=== PATIENT | female | born 1960 | race Hispanic/Latino ===

== ENCOUNTER 2017-06-03 15:00 | Inpatient (IN) | payer SELFPAY ==
[2017-06-03] MEDS ORDERED: ISOVUE-370 76%-LOCM 1 ML ONE (15:15)
[2017-06-03] MEDS ORDERED: hydrALAZINE 20 MG/ML VIAL ONE (16:04)
--- NOTE | 2017-06-03 16:35 | RAD ---
PORTABLE AP CHEST X-RAY 06/03/17 HISTORY: Shortness of breath and wheezing. COMPARISON: 03/27/13. FINDINGS: There is a moderate sized right pleural effusion and atelectasis. The cardiac silhouette is magnified by projection. Left lung appears clear. No other interval change. IMPRESSION: Moderate sized right pleural effusion and atelectasis. POS: [facility]
[2017-06-03 16:42] LABS: BHCG - Serum Negative (NEGATIVE); Pregs Control Background? CLEAR/WHITE (CLR/WHITE); Pregs Control Bar Appear? YES (CONTROL BAR)
[2017-06-03 16:51] LABS: #Eosinphils 0.1 thou/uL (0.0-0.7); #Lymphocytes 0.6 thou/uL (1.20-3.40); #Monocytes 0.3 thou/uL (0.11-0.59); #Neutrophils 2.1 thou/uL (1.40-6.50); %Basophils 0.4 % (0.0-1.0); %Eosinophils 2.5 % (0.0-10.0); %Lymphocytes 19.9 % (21.0-51.0); %Monocytes 9.3 % (0.0-10.0); %Neutrophils 67.9 % (42.0-75.0); Hemoglobin 9.3 g/dL (12.0-16.0); Hypochromia SLIGHT = 6-15 cells (100X) (0-5/hpf); MDiff Complete? YES; Mean Corpuscular Hemoglobin 27.3 pg (27.0-31.0); Mean Corpuscular Volume 85.4 fl (81.0-99.0); Mean Platelet Volume 8.8 fL (7.4-10.4); PLT Morphology Comment Appears Decreased; Platelet Count 49 thou/uL (130-400); RBC Distribution Width 16.2 % (11.5-14.5); White Blood Cell (WBC) Count 3.1 thou/uL (4.8-10.8)
[2017-06-03 16:52] LABS: ALT (SGPT) 24 U/L (8-55); AST (SGOT) 64 U/L (5-34); Albumin 3.3 g/dL (3.5-5.0); Alkaline Phosphatase 126 U/L (40-150); Anion Gap 8 mmol/L (10-20); BUN (Urea Nitrogen) 6 mg/dL (9.8-20.1); Bilirubin, Total 2.1 mg/dL (0.2-1.2); Calc. Creatinine Clearance 0 mL/min (70-130); Calcium 8.5 mg/dL (7.8-10.44); Carbon Dioxide 28 mmol/L (22-29); Chloride 103 mmol/L (98-107); Estimated GFR-MDRD 86; Globulin 3.9 g/dL (2.4-3.5); Glucose 132 mg/dL (70-105); Protein, Total 7.2 g/dL (6.0-8.3); Sodium 136 mmol/L (136-145)
[2017-06-03 16:56] LABS: Troponin I Less than 0.010 ng/mL (< 0.028)
[2017-06-03 16:58] LABS: CKMB 7.1 ng/mL (0-6.6)
[2017-06-03 16:59] LABS: Potassium 2.7 mmol/L (3.5-5.1)
[2017-06-03] MEDS ORDERED: Potassium Chloride 20 MEQ TAB ONE (17:05)
[2017-06-03] MEDS ORDERED: SODIUM CHLORIDE 0.9% IVPB SCH (17:30)
[2017-06-03] MEDS ORDERED: POTASSIUM CHLORIDE IVPB SCH (17:30)
--- NOTE | 2017-06-03 19:11 | CT ---
CT PULMONARY ANGIOGRAM WITH IV CONTRAST AND 3D POSTPROCESSING 06/03/17 HISTORY: Dyspnea, shortness of breath, chest pain, wheezing. FINDINGS: The peripheral branches of the pulmonary artery vasculature are suboptimally opacified for satisfacto ry evaluation. No filling defects are seen in the central portion of the pulmonary artery vasculature to suggest the presence of pulmonary embolism. The thoracic aorta is well opacified without aneurysm al dissection. There is a moderate sized right pleural effusion with adjacent infiltrate/atelectatic change. No pericardial or left sided pleural effusions seen. Calcified lymph nodes are seen in the me diastinum and hilar regions. This is consistent with old granulomatous disease. There are degenerativ e changes in the spine. Upper abdominal tomograms demonstrate changes of cirrhosis of the liver, ch olecystectomy, and splenomegaly. A small hiatal hernia is present. IMPRESSION: No evidence of central pulmonary embolism. POS: [facility]
[2017-06-03 19:51] LABS: Troponin I Less than 0.010 ng/mL (< 0.028)
[2017-06-03] MEDS ORDERED: Furosemide 20 MG/2 ML VIAL SLOW IVP SCH (20:00)
[2017-06-03] MEDS ORDERED: Potassium Chloride 20 MEQ TAB PO SCH (20:15)
[2017-06-03 20:38] LABS: Anion Gap 11 mmol/L (10-20); BUN (Urea Nitrogen) 5 mg/dL (9.8-20.1); Calc. Creatinine Clearance 0 mL/min (70-130); Calcium 8.5 mg/dL (7.8-10.44); Carbon Dioxide 28 mmol/L (22-29); Chloride 104 mmol/L (98-107); Estimated GFR-MDRD Greater than 90; Glucose 82 mg/dL (70-105); Potassium 3.5 mmol/L (3.5-5.1); Sodium 139 mmol/L (136-145)
--- NOTE | 2017-06-03 21:36 | ULT ---
LIMITED ULTRASOUND ABDOMEN: 06/03/17 HISTORY: Evaluate for ascites. FINDINGS: Sonographic evaluation of the four quadrants of the abdomen and the midline pelvis demonstrates no fr ee fluid to suggest ascites. Incidental note is made of a right sided pleural effusion. IMPRESSION: No evidence of ascites. POS: [facility]
[2017-06-03 22:25] LABS: Bilirubin Negative (Negative); Blood, Urine Negative (Negative); Clarity CLEAR (Clear); Glucose, Urine (Dipstick) Negative (Negative); Leukocyte Negative (Negative); Nitrite Negative (Negative); Protein, Urine (Dipstick) Negative (Neg-Trace); Specific Gravity, Urine 1.021 (1.002-1.036)
[2017-06-03 22:29] LABS: Bacteria/HPF None Seen HPF (None Seen); Hyaline Casts/LPF 0-3 HYALINE CAST LPF (0-3 Hyaline); Pathc Cast-AUWi Flag 0.29 (0-2.49); RBC/HPF None Seen HPF (0-3); Squamous Epithelial 0-3 HPF (0-3); WBC/HPF 0-3 HPF (0-3)
[2017-06-03 23:02] LABS: Troponin I 0.011 ng/mL (< 0.028)
[2017-06-04 01:58] LABS: #Eosinphils 0.1 thou/uL (0.0-0.7); #Lymphocytes 0.4 thou/uL (1.20-3.40); #Monocytes 0.3 thou/uL (0.11-0.59); #Neutrophils 1.6 thou/uL (1.40-6.50); %Basophils 0.2 % (0.0-1.0); %Eosinophils 2.5 % (0.0-10.0); %Lymphocytes 18.5 % (21.0-51.0); %Monocytes 11.9 % (0.0-10.0); Hemoglobin 8.5 g/dL (12.0-16.0); Mean Corpuscular HGB CONC 32.4 g/dL (32.0-36.0); Mean Corpuscular Hemoglobin 27.6 pg (27.0-31.0); Mean Corpuscular Volume 85.2 fl (81.0-99.0); Mean Platelet Volume 10.2 fL (7.4-10.4); Platelet Count 45 thou/uL (130-400); RBC Distribution Width 16.1 % (11.5-14.5); Red Blood Cell (RBC) Count 3.07 mill/uL (4.20-5.40); White Blood Cell (WBC) Count 2.4 thou/uL (4.8-10.8)
[2017-06-04 02:15] LABS: Anion Gap 7 mmol/L (10-20); BUN (Urea Nitrogen) 5 mg/dL (9.8-20.1); Calc. Creatinine Clearance 164 mL/min (70-130); Calcium 8.2 mg/dL (7.8-10.44); Carbon Dioxide 29 mmol/L (22-29); Chloride 106 mmol/L (98-107); Estimated GFR-MDRD Greater than 90; Glucose 88 mg/dL (70-105); Potassium 3.6 mmol/L (3.5-5.1); Sodium 138 mmol/L (136-145)
[2017-06-04] MEDS: Furosemide 20 MG/2 ML VIAL SLOW IVP SCH ×2 (05:37→13:27)
[2017-06-04 08:18] LABS: Anion Gap 12 mmol/L (10-20); BUN (Urea Nitrogen) 5 mg/dL (9.8-20.1); Calc. Creatinine Clearance 162 mL/min (70-130); Calcium 8.5 mg/dL (7.8-10.44); Carbon Dioxide 25 mmol/L (22-29); Chloride 105 mmol/L (98-107); Estimated GFR-MDRD Greater than 90; Glucose 90 mg/dL (70-105); Potassium 3.4 mmol/L (3.5-5.1); Sodium 139 mmol/L (136-145)
[2017-06-04] MEDS ORDERED: Enoxaparin Sodium 30 MG/0.3 ML SYRINGE SC SCH (09:00)
[2017-06-04] MEDS ORDERED: hydrALAZINE 20 MG/ML VIAL SLOW IVP PRN (10:14)
[2017-06-04] MEDS ORDERED: Lisinopril 20 MG TAB PO SCH (10:30)
[2017-06-04] MEDS: Acetaminophen 325 MG TAB PO PRN (10:38)
--- NOTE | 2017-06-04 11:06 | PDOC.PN ---
- Subjective Encounter Start Date: 06/04/17 Encounter Start Time: 11:03 Subjective: nsg notes rev, clint ovn, pt reports her wheezing and breathing is better but -: still has very SOB with walking - Objective Resuscitation Status: Resuscitation Status FULL:Full Resuscitation Vital Signs & Weight: Vital Signs (12 hours) Temp Pulse Pulse Pulse Resp BP BP 06/04/17 10:38 193/102 H 06/04/17 09:50 74 83 153/80 H 06/04/17 08:00 98.2 F 79 16 06/04/17 07:53 98.2 F 79 16 06/04/17 03:29 98.4 F 76 20 06/03/17 23:28 98.2 F 80 16 BP BP Pulse Ox 06/04/17 10:38 06/04/17 09:50 193/102 H 06/04/17 08:00 98 06/04/17 07:53 151/87 H 98 06/04/17 03:29 157/84 H 97 06/03/17 23:28 175/83 H 100 Weight Weight 240 lb 3.2 oz I&O: 06/03/17 06/04/17 06/05/17 06:59 06:59 06:59 Intake Total 2630 240 Output Total 2300 Balance 330 240 Result Diagrams: 06/04/17 01:50 06/04/17 07:46 Phys Exam - Physical Examination Constitutional: NAD seated in hospital chair HEENT: PERRLA, moist MMs, sclera anicteric, oral pharynx no lesions Respiratory: no rales, no rhonchi end expiratory wheezing with deep inspiration Cardiovascular: RRR, no significant murmur, no rub Gastrointestinal: soft, non-tender, positive bowel sounds large Musculoskeletal: pulses present 2+ b/l LE pitting pedal edema Neurological: moves all 4 limbs Psychiatric: A&O x 3 Deviation from normal: baseline affect Dx/Plan - Plan wheezing * symptomatically improved * empiric lasix 20mg IV BID with monitoring I/O, BMP * suspect related to R pleural effusion - unclear etiology R pleural effusion * unclear type * continue with symptomatic diuresis as above * ECHO to eval cardiac fxn * U/S abd neg for obvious hepatic etiology liang cytopenia * unclear etiology * dvt ppx with sq hypertension * continue home HCTZ * t/c adding lisinopril * closely monitor SBP diet: as tolerated activity: as tolerated with PT dvt ppx Review of Systems - Medications/Allergies Allergies/Adverse Reactions: Allergies Allergy/AdvReac Type Severity Reaction Status Date / Time No Known Allergies Allergy Verified 06/03/17 22:47 Medications: Current Medications Acetaminophen (Tylenol) 650 mg PO Q4H PRN PRN Reason: Headache/Fever or Pain Last Admin: 06/04/17 10:38 Dose: 650 mg Enoxaparin Sodium (Lovenox) 30 mg SC 0900 [facility] Last Admin: 06/04/17 08:24 Dose: 30 mg Furosemide (Lasix) 20 mg SLOW IVP 0600,1400 [facility] Last Admin: 06/04/17 05:37 Dose: 20 mg Hydralazine HCl (Apresoline) 10 mg SLOW IVP Q4H PRN PRN Reason: SBP > 180 Hydrochlorothiazide (Hydrochlorothiazide) 25 mg PO DAILY [facility] Lisinopril (Zestril) 20 mg PO DAILY [facility] Lisinopril (Zestril) 20 mg PO 1030 [facility] Stop: 06/04/17 12:30 Last Admin: 06/04/17 10:38 Dose: 20 mg
--- NOTE | 2017-06-04 11:44 | HP ---
CHIEF COMPLAINT: Shortness of breath. HISTORY OF PRESENT ILLNESS: This is a 57-year-old female with a known history of hypertension who presents with acute on chronic worsening of shortness of breath. The most chronic complaint has been progressive over the last month and over the last 2-3 days, she has noticed that shortness of breath has gotten worse, particularly she is unable to complete ADLs without becoming short of breath. The patient also has been noted to have progressive lower extremity swelling and abdominal swelling per her sister who is with her at bedside. The patient denies any prior similar episodes. REVIEW OF SYSTEMS: As per HPI. Constitutional: Denies any recent fevers, chills, or significant weight loss or gain, but the patient has not been weighing herself. HEENT: No new headaches, dizziness, lightheadedness, or vision changes. Cardiovascular: No chest pain, chest pressure, left-sided arm numbness or tingling. Positive for shortness of breath as described above. Respiratory: Shortness of breath as described above. No recent upper respiratory infection. Denies any cough or congestion. Gastrointestinal: Denies any nausea, vomiting, abdominal pain other than the bloating that was noted by her sister. The patient herself does not recall any. Denies any diarrhea or constipation. Describes a preserved appetite. Genitourinary: Denies any recent issues with dysuria. Musculoskeletal: Denies any new myalgias or arthralgias other than bilateral lower extremity swelling. The remainder of the review of systems otherwise negative. PAST MEDICAL HISTORY: Significant for hypertension. PAST SURGICAL HISTORY: The patient denies any surgeries in the past. HOME MEDICATIONS: Please see the EMR for full details. The patient only takes "1 pill" for her blood pressure, but does not recall the name of it off the top of her head. SOCIAL HISTORY: The patient lives alone. Denies any alcohol or illicit drug use, is accompanied here by her sister. She does needs her sister as her medical decision maker if she is unable to make her own medical decisions. PHYSICAL EXAMINATION: GENERAL: The patient is awake, alert, appropriate, oriented x3, conversant. HEENT: Normocephalic, atraumatic. Moist mucous membranes, equal ocular motions are intact. CARDIOVASCULAR: S1, S2. No murmurs, rubs or gallops. Soft heart tones. Pulses 2+ bilateral upper extremities, bilateral 2+ pitting pedal edema. RESPIRATORY: Clear to auscultation, diminished throughout with some crackles of the right lower lobe, some dyspnea with conversation. GASTROINTESTINAL: Positive bowel sounds. Soft, nontender to palpation. Large , obese. No fluid wave appreciated. MUSCULOSKELETAL: Moving all 4 extremities equally. LABORATORY DATA: WBC 3.1, hemoglobin 9.3, hematocrit 29.0, platelets 49. Sodium 136, potassium 2.7, chloride 103, bicarbonate 28, BUN 6, creatinine 0.7, glucose 132, calcium 8.5, total bilirubin 2.1, AST 64, ALT 24, alkaline phosphatase 126, troponin less than 0.01. Brain natriuretic peptide is 73.6, total protein 7.2, albumin 3.3. Serum test is negative. UA is otherwise bland. D-dimer 3.43. X-RAY FINDINGS: On 06/03/2017, chest x-ray demonstrates, impression "moderate right-sided pleural effusion and atelectasis." On 06/03/2017, CT of the chest, thorax, impression "no evidence of central pulmonary embolism." ASSESSMENT AND PLAN: 1. Shortness of breath, right now, possibly attributed to the patient's right- sided pleural effusion. Unclear etiology of the pleural effusion and given the patient's leukopenia and thrombocytopenia, we will go ahead and check abdomen with an ultrasound. Also, concern for maybe an occult cardiac process. We will check an echocardiogram for the patient as well. For symptomatic management, we will diurese carefully with Lasix 20 mg IV b.i.d. and close monitoring of renal electrolyte function. 2. Hypertension. Patient will be resumed on her home regimen with up titration as needed and a p.r.n. dose of hydralazine as needed. Admit the patient to inpatient telemetry. Thank you for asking me to care for the patient. Questions or concerns, please contact me at [facility]. SELWYN
[2017-06-04 14:25] LABS: Anion Gap 10 mmol/L (10-20); BUN (Urea Nitrogen) 6 mg/dL (9.8-20.1); Calc. Creatinine Clearance 159 mL/min (70-130); Calcium 8.3 mg/dL (7.8-10.44); Carbon Dioxide 26 mmol/L (22-29); Chloride 104 mmol/L (98-107); Estimated GFR-MDRD Greater than 90; Glucose 136 mg/dL (70-105); Potassium 3.5 mmol/L (3.5-5.1); Sodium 136 mmol/L (136-145)
[2017-06-04 18:21] LABS: Anisocytosis SLIGHT = 6-15 cells (100X) (0-5/hpf); Band 3 % (5-11); Eosinophils 1 % (0-10); Hemoglobin 9.3 g/dL (12.0-16.0); Hypochromia SLIGHT = 6-15 cells (100X) (0-5/hpf); Lymphocytes 10 % (21-51); MDiff Complete? YES; Mean Corpuscular HGB CONC 31.6 g/dL (32.0-36.0); Mean Corpuscular Hemoglobin 27.3 pg (27.0-31.0); Mean Corpuscular Volume 86.3 fl (81.0-99.0); Mean Platelet Volume 10.2 fL (7.4-10.4); Monocytes 3 % (0-10); Neutrophil 83 % (42-75); PLT Morphology Comment Appears Decreased; Platelet Count 52 thou/uL (130-400); RBC Distribution Width 16.4 % (11.5-14.5); White Blood Cell (WBC) Count 2.7 thou/uL (4.8-10.8)
[2017-06-04 21:16] LABS: Anion Gap 8 mmol/L (10-20); BUN (Urea Nitrogen) 7 mg/dL (9.8-20.1); Calc. Creatinine Clearance 146 mL/min (70-130); Calcium 8.2 mg/dL (7.8-10.44); Carbon Dioxide 27 mmol/L (22-29); Chloride 105 mmol/L (98-107); Estimated GFR-MDRD 82; Glucose 107 mg/dL (70-105); Potassium 3.4 mmol/L (3.5-5.1); Sodium 137 mmol/L (136-145)
--- NOTE | 2017-06-04 22:00 | CON ---
DATE OF CONSULTATION: 06/04/2017 SERVICE: Pulmonary Medicine. REASON FOR CONSULTATION: Pleural effusion. HISTORY OF PRESENT ILLNESS: The patient is a 57-year-old female with past medical history significant for essentially nothing. She was in her usual state of health until 3 weeks ago when she had increasing dyspnea on exertion. For the last week, she has been waking up in the middle of the night choking and gasping. She sat on the side of the bed for 15-20 minutes before she catch her breath. She lie back down, but feel short of breath almost immediately. She has been sleeping more upright. She denies any current fevers or chills. She had not been coughing up any significant sputum with color. She is having increasing lower extremity swelling as well as weight gain. She presented to the Emergency Department and was discovered to be floridly overloaded. She ended up getting several doses of Lasix. She feels dramatically improved as far as her breathing goes. When she was in the Emergency Department, she had a CT of the chest demonstrating pleural effusion. PAST MEDICAL HISTORY: 1. Hypertension. 2. History of pituitary tumor, status post excision. PAST SURGICAL HISTORY: Pituitary tumor excision. ALLERGIES: No known drug allergies. MEDICATIONS: Inpatient medications were reviewed. No updates were made. SOCIAL HISTORY: Negative for alcohol, tobacco or illicit drug use. She has no exposure to chemicals, dust, asbestos or tuberculosis. FAMILY HISTORY: Noncontributory. REVIEW OF SYSTEMS: General, head, ears, eyes, nose, throat, cardiovascular, respiratory, GI, , musculoskeletal, neurologic and skin is negative except as mentioned in the HPI. PHYSICAL EXAMINATION: VITAL SIGNS: Afebrile, pulse 72, blood pressure 167/82, respirations 16, saturation 99% on room air. GENERAL: The patient is awake, alert, no apparent distress. LUNGS: Reduced air entry in the right. There is a little dullness to percussion there. That being said, I have to say the effusion is likely getting smaller. There are crackles present bilaterally. HEART: Normal rate, regular. ABDOMEN: Soft, nontender, nondistended. Bowel sounds are positive. MUSCULOSKELETAL: No cyanosis or clubbing. There is no pitting in the bilateral lower extremities. NEUROLOGIC: Grossly nonfocal. LABORATORY DATA: WBC 2.4, hemoglobin 8.5, platelets 45,000. D-dimer 3.43. Basic metabolic profile is essentially unremarkable. Urinalysis is negative. IMAGIN. Echocardiogram demonstrates an ejection fraction of 50%-55%. There is diastolic dysfunction and an enlarged left atrium. Mild mitral regurgitation is also present. 2. CT of the chest demonstrates moderate pleural effusion on the right. There is a little bit of compressive atelectasis there. This appears to be a benign fluid and is freely layering. No pulmonary embolism is identified. There is no infiltrate. ASSESSMENT: 1. Acute hypoxic respiratory failure, resolved. 2. Anasarca with pleural effusion. 3. Acute on chronic diastolic heart failure. 4. Obstructive sleep apnea, suspected. 5. History of pituitary excision. 6. Pancytopenia. PLAN: We will get a peripheral smear in the morning as well as a folate and B12 level. I will add a magnesium and phosphorus because of her recent diuretics. Agree with repeat laboratories in the morning. I will get an INR to make certain the synthetic function of her liver is fine. I will check a TSH because of the history of pituitary excision. At this point, the patient has had dramatic improvement in her symptoms with aggressive diuretics. As such , we will simply repeat chest x-ray in the morning. If the effusion is getting better, we can repeat another x-ray in the outpatient setting in 4-6 weeks. At that time come, we can look into whether or not sleep apnea exist. If it does, we will get her started on therapy in the outpatient setting. If on the other hand, the pleural effusion is still there, we will perform a thoracentesis while she is in the hospital. 70 minutes have been devoted to this patient in various activities. I personally reviewed all imaging studies and laboratory data noted within this document. For fifty percent of this time, I was interacting with the patient at the bedside or coordinating care with the care team. For the remainder of the time I was immediately available to the patient in the hospital unit. SELWYN
[2017-06-04] MEDS ORDERED: Ondansetron ODT 4 MG TAB PO PRN (23:07)
[2017-06-05 02:29] LABS: #Eosinphils 0.1 thou/uL (0.0-0.7); #Lymphocytes 0.4 thou/uL (1.20-3.40); #Monocytes 0.2 thou/uL (0.11-0.59); #Neutrophils 1.5 thou/uL (1.40-6.50); %Basophils 0.2 % (0.0-1.0); %Eosinophils 3.4 % (0.0-10.0); %Lymphocytes 19.6 % (21.0-51.0); %Monocytes 8.7 % (0.0-10.0); %Neutrophils 68.1 % (42.0-75.0); Hemoglobin 8.1 g/dL (12.0-16.0); Mean Corpuscular HGB CONC 32.5 g/dL (32.0-36.0); Mean Corpuscular Hemoglobin 27.8 pg (27.0-31.0); Mean Corpuscular Volume 85.4 fl (81.0-99.0); Mean Platelet Volume 9.4 fL (7.4-10.4); Platelet Count 45 thou/uL (130-400); RBC Distribution Width 16.3 % (11.5-14.5); Red Blood Cell (RBC) Count 2.92 mill/uL (4.20-5.40); White Blood Cell (WBC) Count 2.2 thou/uL (4.8-10.8)
[2017-06-05 02:43] LABS: INR-International Normal Ratio 1.7; Prothrombin Time 20.8 SEC (12.0-14.7)
[2017-06-05 02:48] LABS: Anion Gap 8 mmol/L (10-20); BUN (Urea Nitrogen) 7 mg/dL (9.8-20.1); Calc. Creatinine Clearance 162 mL/min (70-130); Calcium 7.9 mg/dL (7.8-10.44); Carbon Dioxide 27 mmol/L (22-29); Chloride 106 mmol/L (98-107); Estimated GFR-MDRD Greater than 90; Glucose 86 mg/dL (70-105); Potassium 3.5 mmol/L (3.5-5.1); Sodium 137 mmol/L (136-145)
[2017-06-05 03:01] LABS: Magnesium 1.8 mg/dL (1.6-2.6); Phosphorus 2.6 mg/dL (2.3-4.7)
[2017-06-05 05:45] LABS: Folate (Folic Acid) 10.9 ng/mL (7.0-31.4)
[2017-06-05] MEDS: Furosemide 20 MG/2 ML VIAL SLOW IVP SCH ×3 (05:50→21:54)
[2017-06-05 08:13] LABS: Anion Gap 10 mmol/L (10-20); BUN (Urea Nitrogen) 7 mg/dL (9.8-20.1); Calc. Creatinine Clearance 153 mL/min (70-130); Calcium 8.2 mg/dL (7.8-10.44); Carbon Dioxide 24 mmol/L (22-29); Chloride 108 mmol/L (98-107); Estimated GFR-MDRD 86; Glucose 87 mg/dL (70-105); Potassium 3.6 mmol/L (3.5-5.1); Sodium 138 mmol/L (136-145)
[2017-06-05] MEDS: Hydrochlorothiazide 25 MG TAB PO SCH (10:04)
[2017-06-05] MEDS: Lisinopril 20 MG TAB PO SCH (10:04)
--- NOTE | 2017-06-05 10:30 | RAD ---
TWO VIEWS CHEST: DATE: 06/05/17. PROVIDED CLINICAL HISTORY: Followup effusion. FINDINGS: Cardiac silhouette remains enlarged. Prominence of the pulmonary vasculature and pulmonary interstit ium are redemonstrated. Interval decrease in right pleural density. No evidence for pneumothorax. IMPRESSION: Cardiomegaly and pulmonary vascular congestion compatible with congestive failure. Interval decrease in right pleural density. POS: [facility]
--- NOTE | 2017-06-05 10:30 | PDOC.PN ---
- Subjective Encounter Start Date: 06/05/17 Encounter Start Time: 10:30 CC: [id number] Sub: Pt says she feels better, denies dyspnea - Objective Resuscitation Status: Resuscitation Status FULL:Full Resuscitation Vital Signs & Weight: Vital Signs (12 hours) Temp Pulse Resp BP BP Pulse Ox 06/05/17 10:04 119/73 06/05/17 08:00 98.5 F 72 16 119/73 97 06/05/17 04:00 98.6 F 76 16 135/68 95 06/04/17 23:07 98.4 F 69 20 134/76 99 Weight Weight 240 lb 3.2 oz I&O: 06/04/17 06/05/17 06/06/17 06:59 06:59 06:59 Intake Total 2630 1215 420 Output Total 2300 Balance 330 1215 420 Result Diagrams: 06/05/17 02:12 06/05/17 07:39 Dx/Plan - Plan Constitutional: NAD, sitting in chair seated in hospital chair HEENT: PERRLA, moist MMs, sclera anicteric, oral pharynx no lesions Respiratory: no rales, no rhonchi end expiratory wheezing with deep inspiration Cardiovascular: RRR, no significant murmur, no rub Gastrointestinal: soft, non-tender, positive bowel sounds large Musculoskeletal: pulses present 2+ b/l LE pitting pedal edema Neurological: moves all 4 limbs Psychiatric: A&O x 3 Deviation from normal: baseline affect Dx/Plan - Plan wheezing * symptomatically improved * will increase lasix to 20mg IV q8h with monitoring I/O, BMP * suspect related to R pleural effusion - unclear etiology R pleural effusion * unclear type * continue with symptomatic diuresis as above * ECHO to eval cardiac fxn * U/S abd neg for obvious hepatic etiology liang cytopenia * unclear etiology, will check hepatitis and HIV panel * dvt ppx with sq hypertension * continue home HCTZ * closely monitor SBP diet: as tolerated activity: as tolerated with PT dvt ppx d/w pt & RN
[2017-06-05 11:50] LABS: HBCM Index 0.06 S/CO (0-0.79); HBSAg Index 0.24 S/CO (0-0.99); HIV (1/2) Antibody/Antigen Non-Reactive (NonReactive); HIV 1/2 INDEX 0.14 S/CO (<1.00); Hep A IgM AB Non-Reactive (NonReactive); Hep A IgM S/CO 0.09 S/CO (0-0.79); Hep B Surf Ag Non-Reactive S/CO (NonReactive); Hep C IgG Ab Non-Reactive (NonReactive); Hep C Index 0.17 S/CO (0-0.79); Hepatitis B Core IGM Abs Non-Reactive (NonReactive)
[2017-06-05 15:06] LABS: Anion Gap 11 mmol/L (10-20); BUN (Urea Nitrogen) 8 mg/dL (9.8-20.1); Calc. Creatinine Clearance 140 mL/min (70-130); Calcium 7.9 mg/dL (7.8-10.44); Carbon Dioxide 22 mmol/L (22-29); Chloride 107 mmol/L (98-107); Estimated GFR-MDRD 78; Glucose 133 mg/dL (70-105); Potassium 3.9 mmol/L (3.5-5.1); Sodium 136 mmol/L (136-145)
[2017-06-06] MEDS: Acetaminophen 325 MG TAB PO PRN ×2 (00:08→22:15)
[2017-06-06 05:13] LABS: #Eosinphils 0.1 thou/uL (0.0-0.7); #Lymphocytes 0.7 thou/uL (1.20-3.40); #Monocytes 0.3 thou/uL (0.11-0.59); #Neutrophils 1.5 thou/uL (1.40-6.50); %Basophils 0.8 % (0.0-1.0); %Eosinophils 3.4 % (0.0-10.0); %Lymphocytes 27.1 % (21.0-51.0); %Monocytes 10.7 % (0.0-10.0); Hemoglobin 8.6 g/dL (12.0-16.0); Mean Corpuscular HGB CONC 32.6 g/dL (32.0-36.0); Mean Corpuscular Hemoglobin 28.2 pg (27.0-31.0); Mean Corpuscular Volume 86.5 fl (81.0-99.0); Mean Platelet Volume 9.7 fL (7.4-10.4); Platelet Count 55 thou/uL (130-400); RBC Distribution Width 16.6 % (11.5-14.5); Red Blood Cell (RBC) Count 3.04 mill/uL (4.20-5.40); White Blood Cell (WBC) Count 2.5 thou/uL (4.8-10.8)
[2017-06-06 05:42] LABS: Anion Gap 10 mmol/L (10-20); BUN (Urea Nitrogen) 9 mg/dL (9.8-20.1); Calc. Creatinine Clearance 142 mL/min (70-130); Calcium 8.1 mg/dL (7.8-10.44); Carbon Dioxide 26 mmol/L (22-29); Chloride 105 mmol/L (98-107); Estimated GFR-MDRD 85; Glucose 82 mg/dL (70-105); Potassium 3.5 mmol/L (3.5-5.1); Sodium 137 mmol/L (136-145)
[2017-06-06] MEDS: Furosemide 20 MG/2 ML VIAL SLOW IVP SCH ×3 (06:47→22:20)
--- NOTE | 2017-06-06 07:44 | ULT ---
RIGHT UPPER QUADRANT ULTRASOUND: HISTORY: A 57-year-old female with a history of followup right pleural effusion. Followup chest pain, shortne ss of breath, and wheezing. FINDINGS: Abnormal liver echotexture with capsular nodularity and overall appearance certainly raises concern f or cirrhosis. Common bile duct 0.6 cm. Status post gallbladder removal. Poorly evaluated pancreas. No right renal hydronephrosis. IMPRESSION: Nodular coarse liver echogenicity with some contour nodularity, evidence for cirrhosis. No ductal di latation. No evidence for ascites I the right upper quadrant. POS: [facility]
[2017-06-06] MEDS: Hydrochlorothiazide 25 MG TAB PO SCH (08:08)
[2017-06-06] MEDS: Lisinopril 20 MG TAB PO SCH (08:08)
[2017-06-06] MEDS ORDERED: Spironolactone 25 MG TAB PO SCH (10:30)
--- NOTE | 2017-06-06 11:56 | CON ---
DATE OF CONSULTATION: 06/06/2017. REASON FOR CONSULTATION: Shortness of breath, possible diastolic congestive heart failure. HISTORY OF PRESENT ILLNESS: Ms. Patti Palma is a 57-year-old woman. She was admitted to the [facility] on 06/03/2017 with difficulty breathing. She was found to be volume overloaded. She also has pleural effusion. She has received diuretic therapy and has improved, but was found to have what jamie ears to be a very significant liver disease. The patient does not have chest pain. She was very short of breath and had edema, but that is all im proved. PAST MEDICAL HISTORY: 1. Hypertension. 2. No previous cardiac history. 3. History of pituitary tumor with previous excision. SURGICAL HISTORY: Pituitary tumor excision. ALLERGIES: None known. MEDICATIONS: Inpatient medicines reviewed, please see below. SOCIAL HISTORY: She says she drinks alcohol perhaps once a month. No tobacco, no drugs. FAMILY HISTORY: Noncontributory. REVIEW OF SYSTEMS: Constitutional: Positive for shortness of breath, no weight gain or loss. Visio n: No changes. Hearing: No changes. Pulmonary: No cough or wheezing. Gastrointestinal: No nausea, vomiting, diarrhea. Skin: No rashes. Neurologic: No unilateral weak ness or numbness. Psychiatric: No unusual depression or anxiety. Hematologic: No unusual bruising . Genitourinary: No burning with urination. Musculoskeletal: No unusual joint pains. PHYSICAL EXAMINATION: VITAL SIGNS: The blood pressure is 137/87, pulse 60. HEENT: Eyes, sclerae nonicteric. Mouth mucous membranes moist. NECK: Supple, no lymphadenopathy. LUNGS: Clear, no wheezing, rales or rhonchi. CARDIAC: Normal S1, normal S2. There is no murmur, rub or gallop. ABDOMEN: Soft, nontender, no hepatosplenomegaly. EXTREMITIES: Warm, dry, no clubbing, no cyanosis or edema. Currently, she has good posterior tibial pulses bilaterally. PERTINENT LABORATORY DATA AND IMAGING: Potassium on arrival was low at 2.7 and now it is up to 3.5, creatinine is 0.7. BNP was normal at 73.6. Troponins were normal. Echocardiogram revealed an eject ion fraction of 55%-60%. The left atrium is mildly dilated. The pulmonary artery pressure appeared normal. The left atrial dimension was measured at 4.6 cm. EKG, normal sinus rhythm, no acute changes. ASSESSMENT: 1. Probable diastolic heart failure based on clinical criteria, although the BNP is normal. 2. The patient has evidence of cirrhosis based on liver imaging and also has INR markedly elevated a t 1.7 usually corresponding with relatively severe liver disease. 3. Pancytopenia. Hemoglobin is 8.6, WBC 2.5, platelet count 55, was as low as 45. I suspect also r elated to liver disease. 4. History of hypertension. 5. Hypokalemia on admission. PLAN: 1. Stress testing to screen for any underlying obstructive coronary artery disease. 2. Attention has been given to her liver. It looks like from the cardiac standpoint, the main thera py will be diuretic therapy. We will continue to follow with you.
[2017-06-06] MEDS ORDERED: Lorazepam 0.5 MG TAB PO PRN (13:19)
--- NOTE | 2017-06-06 15:14 | PRG ---
DATE OF SERVICE: 06/06/2017 SERVICE: Pulmonary Medicine. INTERVAL HISTORY: The patient is doing fine from a respiratory standpoint. She is on room air. She denies any chest pain, nausea, vomiting, fevers, or chills. Her lower extremity swelling continues to improve. She is going to go for a stress test tomorrow. Gastroenterology opinion is currently pe nding. PHYSICAL EXAMINATION: VITAL SIGNS: Afebrile, pulse 61, blood pressure 161/86, respirations 16, saturation 100% on room air . GENERAL: The patient is awake, alert, in no apparent distress. LUNGS: Excellent air entry. Crackles remain. There is no prolonged expiratory phase or wheezing pr esent. HEART: Normal rate, regular. ABDOMEN: Soft, nontender, nondistended. Bowel sounds are positive. MUSCULOSKELETAL: No cyanosis or clubbing. There is 2+ edema present still. That being said, it is much improved. GENITOURINARY: No Patterson. NEUROLOGIC: Grossly nonfocal. LABORATORY DATA: WBC 2.5, hemoglobin 8.6, platelets 55,000. INR 1.7. Basic metabolic profile is un remarkable except for potassium of 3.5. Urinalysis is negative. HIV is nonreactive. Hepatitis is n onreactive. Hepatitis B surface antigen was not identified. ASSESSMENT: 1. Acute hypoxic respiratory failure, resolved. 2. Anasarca with pleural effusion, improving with diuretics. 3. Cirrhosis, unknown etiology. 4. Acute on chronic diastolic heart failure. 5. Obstructive sleep apnea, suspected. 6. Pancytopenia. PLAN: The patient is perfectly stable from a respiratory standpoint for transitioning out of the [facility]. I would like for her to have a repeat x-ray of the chest in 2-4 weeks in the outpatient [facility], so we can verify the effusion goes away completely. A gastroenterology opinion is pending. This is almost definitely the cause of her anasarca state. Potassium to be replaced today. At this poin t, she has no further inpatient requirements for Pulmonary or Critical Care opinion and I will sign o ff.
[2017-06-06] MEDS ORDERED: Potassium Chloride 20 MEQ TAB PO SCH (15:30)
--- NOTE | 2017-06-06 22:12 | PDOC.PN ---
- Subjective Encounter Start Date: 06/06/17 Encounter Start Time: 17:00 Patient seen and examined for anasarca/sob. SOB improving. No new complaints. No overnight events - Objective Resuscitation Status: Resuscitation Status FULL:Full Resuscitation MAR Reviewed: Yes Vital Signs & Weight: Vital Signs (12 hours) Temp Pulse Resp BP BP Pulse Ox 06/06/17 19:29 98.0 F 68 16 171/86 H 99 06/06/17 15:46 98.7 F 62 18 173/92 H 93 L 06/06/17 11:52 98.1 F 61 16 161/86 H 100 Weight Weight 225 lb 11.2 oz I&O: 06/05/17 06/06/17 06/07/17 06:59 06:59 06:59 Intake Total 1215 1342 830 Output Total 850 2195 Balance 1215 003 -1365 Result Diagrams: 06/07/17 05:44 06/07/17 05:44 Phys Exam - Physical Examination Constitutional: NAD Respiratory: no wheezing, no rhonchi Cardiovascular: RRR, no rub Gastrointestinal: soft, non-tender, positive bowel sounds Musculoskeletal: edema present Neurological: moves all 4 limbs Dx/Plan - Plan DVT proph w/SCDs IMPRESSION: 1. SOB/Anasarca / Pleural effusion. 2. New diagnosis of Cirrhosis with pancytopenia/coagulopathy 3. Morbid obesity BMI 41.3 4. Chronic diastolic heart failure 5. SAGAR 6. Hypokalemia PLAN: * Cont diuresis - reduce Lasix dose to BID * Cont Aldactone * AM labs * No Lovenox due to thrombocytopenia Review of Systems - Review of Systems Respiratory: SOB with Excertion. negative: Cough, Dry, Shortness of Breath, Hemoptysis, Pleuritic Pain, Sputum, Wheezing Cardiovascular: edema. negative: chest pain, palpitations, orthopnea, paroxysmal nocturnal dyspnea, light headedness, other Gastrointestinal: negative: Nausea, Vomiting, Abdominal Pain, Diarrhea, Constipation, Melena, Hematochezia, Other - Medications/Allergies Allergies/Adverse Reactions: Allergies Allergy/AdvReac Type Severity Reaction Status Date / Time No Known Allergies Allergy Verified 06/03/17 22:47 Medications: Current Medications Acetaminophen (Tylenol) 650 mg PO Q4H PRN PRN Reason: Headache/Fever or Pain Last Admin: 06/06/17 00:08 Dose: 650 mg Furosemide (Lasix) 20 mg SLOW IVP 0600,1400 [facility] Hydralazine HCl (Apresoline) 10 mg SLOW IVP Q4H PRN PRN Reason: SBP > 180 Lisinopril (Zestril) 20 mg PO DAILY [facility] Last Admin: 06/06/17 08:08 Dose: 20 mg Lorazepam (Ativan) 0.5 mg PO Q4H PRN PRN Reason: Claustrophobia Stop: 06/07/17 13:20 Ondansetron HCl (Zofran Odt) 4 mg PO Q6H PRN PRN Reason: Nausea/Vomiting Last Admin: 06/04/17 23:36 Dose: 4 mg Spironolactone (Aldactone) 25 mg PO [facility]
--- NOTE | 2017-06-07 01:57 | CON ---
DATE OF CONSULTATION: 06/06/2017 REASON FOR CONSULTATION: New diagnosis of cirrhosis. HISTORY OF PRESENT ILLNESS: Ms. Palma is a 57-year-old female who was admitted to the hospital on 06/03/2017. She reports she was having progressive dyspnea on exertion, orthopnea and swelling in th e legs until she came to the emergency room with acute shortness of breath. Here, she was found to h ave a chest x-ray showing a right pleural effusion. CT of the chest was performed confirming this an d showing no other lesions suggestive of cirrhotic liver and ultrasound of the abdomen was performed, which showed no evidence of ascites. Labs on admission showed a white count of 3.1, hemoglobin 9.3, MCV of 85, platelet count 49,000. She is not aware of the issues with low platelets in the past. H er INR is 1.7. Her chemistry showed sodium 136, potassium 3.7, BUN and creatinine of 6 and 0.7, gluc ose 132, bilirubin of 2.1, AST of 64, ALT of 24, alkaline phosphatase 126, albumin 3.3, total protein of 7.2. She had CKs that were negative. Serum test was negative. TSH was normal. B12 t hat was normal at 684. Hepatitis A, B, and C serologies were negative. In talking with the patient about fatty liver and alcohol, she states she did drink heavily when she was young, but has not for a long time. She states she was never a daily drinker. She does report t hat Dr. Gutiérrez had told her at one time she may have some issues with her liver test, but she is not clear of any diagnosis or testing being made. Of note, she is a significantly poor historian. PAST MEDICAL HISTORY: Hypertension, history of pituitary tumor with previous excision. PAST SURGICAL HISTORY: Pituitary tumor excision. ALLERGIES: None known. MEDICATIONS: At home, she was on hydrochlorothiazide only. Here, she is on Tylenol 650 p.r.n., Lasi x 20 IV every 8 hours as scheduled, Apresoline p.r.n., lisinopril 20 mg daily, Ativan 0.5 mg p.r.n., Zofran p.r.n., K-Dur. Aldactone has been ordered, 25 mg starting tomorrow. SOCIAL HISTORY: Negative for alcohol, drugs or tobacco now. She did drink in the past as noted abov e. FAMILY HISTORY: Negative for liver disease. REVIEW OF SYSTEMS: Negative for dysphagia, odynophagia, melena, hematochezia or hematemesis. She st ates she has a little bit of swelling in her legs. RADIOLOGIC STUDIES: Otherwise, abdominal ultrasound today showed right lower quadrant with coarse li sol echogenicity. Echocardiogram, no significant heart failure. She does have a little bit of diast olic dysfunction. LABORATORY DATA: BMP is normal. ASSESSMENT: 1. Cirrhosis of unclear etiology. AST is greater than ALT, which makes nonalcoholic fatty liver les s likely. She is a very poor historian, but she may have had some liver issues in the past. S he denies any prior evaluation. Hepatoma screening has been negative between imaging and AFP of 5.7. Etiology of cirrhosis is unclear. 2. Fluid overload. 3. Likely hepatic hydrothorax. RECOMMENDATIONS: 1. Two-gram sodium diet. 2. Aldactone and Lasix, and this was already changed to 40 mg p.o. daily and Aldactone 100 mg daily, watch her weight. Once her edema has resolved in her leg, she will need to be decreased on to a low er dose of diuretic. 3. We would check an ammonia level with her poor memory to make sure she does not have any mild ence phalopathy. 4. We will institute serologic workup for possible underlying cause of liver disease.
[2017-06-07] MEDS ORDERED: Furosemide 20 MG/2 ML VIAL SLOW IVP SCH (06:00)
--- NOTE | 2017-06-07 06:28 | PRG ---
DATE OF SERVICE: 06/05/2017 SERVICE: Pulmonary Medicine. INTERVAL HISTORY: The patient is doing outstanding from a respiratory standpoint. She denies any chest pain or shortness of breath. She is able to get up and walk around the entire room. She has no specific complaints of nausea or vomiting. Otherwise, she feels like she is back to her usual state of health. She is yet to learn the results of her echocardiogram, which I will share with her. OBJECTIVE: VITAL SIGNS: Afebrile, pulse 70, blood pressure 138/68, respirations 20, saturation 96% on room air. GENERAL: Patient is awake, alert, in no apparent distress. LUNGS: Excellent air entry. Crackles are present bilaterally. Better air entry at the right base. HEART: Normal rate, regular. ABDOMEN: Soft, nontender, nondistended. Bowel sounds are positive. MUSCULOSKELETAL: No cyanosis or clubbing. There is 1 to 2+ pitting in the bilateral lower extremities, which is improved. : No Patterson. NEUROLOGIC: Grossly nonfocal. LABORATORY DATA: WBC 2.2, hemoglobin 8.1, platelets 45,000. INR 1.7. Basic metabolic profile is essentially unremarkable with potassium of 3.9. TSH fell within the normal limits. Vitamin B12 and folate were also normal. Hepatitis serologies and HIV are all unremarkable. Pathology review is currently pending. Chest x-ray demonstrates interval improvement in the right pleural effusion. Volume overload is still evident. Echocardiogram demonstrates 55% to 60% ejection fraction with diastolic dysfunction, dilated left atrium with moderate mitral regurgitation. ASSESSMENT: 1. Acute hypoxic respiratory failure, resolved. 2. Pleural effusions, decreasing with diuretics. 3. Acute on chronic diastolic heart failure. 4. Mitral regurgitation. 5. Obstructive sleep apnea. 6. Pancytopenia. 7. Cirrhosis, suspected. DISCUSSION AND PLAN: The peripheral smear is currently pending. She will need an Hematology/Oncology in the outpatient setting. The chest x-ray demonstrated an improving effusion. As such, I will repeat a chest x-ray in 2 to 4 weeks in the outpatient setting. At that time, we will investigate whether or not to send her for a sleep study. I do think that she has a fairly significant sleep apnea based on the niece's description. SELWYN
[2017-06-07 06:42] LABS: ALT (SGPT) 25 U/L (8-55); AST (SGOT) 64 U/L (5-34); Alkaline Phosphatase 100 U/L (40-150); Bilirubin, Direct 1.1 mg/dL (0.1-0.3); Protein, Total 6.9 g/dL (6.0-8.3)
[2017-06-07 06:43] LABS: #Eosinphils 0.1 thou/uL (0.0-0.7); #Lymphocytes 0.5 thou/uL (1.20-3.40); #Monocytes 0.3 thou/uL (0.11-0.59); #Neutrophils 1.6 thou/uL (1.40-6.50); %Basophils 0.7 % (0.0-1.0); %Eosinophils 4.2 % (0.0-10.0); %Lymphocytes 21.2 % (21.0-51.0); %Monocytes 10.7 % (0.0-10.0); %Neutrophils 63.1 % (42.0-75.0); Hemoglobin 9.4 g/dL (12.0-16.0); Mean Corpuscular HGB CONC 32.5 g/dL (32.0-36.0); Mean Corpuscular Hemoglobin 27.9 pg (27.0-31.0); Mean Platelet Volume 9.9 fL (7.4-10.4); Platelet Count 63 thou/uL (130-400); RBC Distribution Width 16.7 % (11.5-14.5); Red Blood Cell (RBC) Count 3.37 mill/uL (4.20-5.40); White Blood Cell (WBC) Count 2.6 thou/uL (4.8-10.8)
[2017-06-07 06:48] LABS: Anion Gap 10 mmol/L (10-20); BUN (Urea Nitrogen) 10 mg/dL (9.8-20.1); Calc. Creatinine Clearance 152 mL/min (70-130); Calcium 8.6 mg/dL (7.8-10.44); Carbon Dioxide 24 mmol/L (22-29); Chloride 107 mmol/L (98-107); Estimated GFR-MDRD Greater than 90; Glucose 75 mg/dL (70-105); Sodium 137 mmol/L (136-145)
[2017-06-07] MEDS ORDERED: Spironolactone 25 MG TAB PO SCH ×3 (08:00→08:45)
--- NOTE | 2017-06-07 09:11 | PRG ---
DATE OF SERVICE: 06/07/2017 Ms. Palma is sitting up in the chair. She is awake, alert, no chest pain or pressure. PHYSICAL EXAMINATION: VITAL SIGNS: Blood pressure is 140/80, pulse 67 and regular. LUNGS: Clear. CARDIAC: Normal S1 and S2. EXTREMITIES: There is 1+ edema. ASSESSMENT: 1. Diastolic heart failure, improved. 2. Cirrhosis. 3. Hypertension. PLAN: 1. Can change to oral medicines. 2. Complete the rest of her stress test today.
[2017-06-07] MEDS: Lisinopril 20 MG TAB PO SCH (09:31)
[2017-06-07] MEDS: Furosemide 20 MG TAB PO SCH ×2 (09:31→13:36)
--- NOTE | 2017-06-07 13:36 | NM ---
CARDIAC SPECT WITH EJECTION FRACTION AND WALL MOTION: HISTORY: 57-year-old female with history of chest pain and hypertension, for Adenosine sestamibi study. TECHNIQUE: Patient was injected with 30 mCi technetium-99m sestamibi intravenously for stress images and patient was injected with 29.0 mCi technetium-99m sestamibi intravenously for resting images. FINDINGS: Multiple SPECT images in the short axis, vertical long axis, and horizontal long axis demonstrate no scan evidence for infarct or ischemia. TID: 0.92 LHR: 0.37 EDV: 89 mL EF: 80% MYOCARDIAL PERFUSION WALL MOTION: Wall motion is normal. IMPRESSION: Normal cardiac SPECT with ejection fraction and wall motion. POS: [facility]
--- NOTE | 2017-06-07 16:49 | PDOC.PN ---
- Subjective Encounter Start Date: 06/07/17 Encounter Start Time: 14:00 Patient seen and examined for Cirrhosis/CHF. No new complaints. No overnight events. No CP/SOB. Leg edema improving. - Objective Resuscitation Status: Resuscitation Status FULL:Full Resuscitation MAR Reviewed: Yes Vital Signs & Weight: Vital Signs (12 hours) Temp Pulse Pulse Pulse Resp BP BP 06/07/17 15:57 97.7 F 70 16 06/07/17 12:20 72 69 147/95 H 155/70 H 06/07/17 11:58 97.4 F L 72 18 06/07/17 08:00 98.4 F 67 16 BP Pulse Ox 06/07/17 15:57 144/70 H 98 06/07/17 12:20 06/07/17 11:58 141/88 H 100 06/07/17 08:00 140/80 96 Weight Weight 225 lb 11.2 oz I&O: 06/06/17 06/07/17 06/08/17 06:59 06:59 06:59 Intake Total 1342 930 240 Output Total 850 2545 800 Balance 452 -2186 -265 Result Diagrams: 06/07/17 05:44 06/07/17 05:44 Phys Exam - Physical Examination Constitutional: NAD Respiratory: no wheezing, no rhonchi Bibasilar rales Cardiovascular: RRR, no rub Gastrointestinal: soft, non-tender, positive bowel sounds Musculoskeletal: edema present Neurological: non-focal, moves all 4 limbs Dx/Plan - Plan plan discussed w/ family, DVT proph w/SCDs IMPRESSION: 1. SOB/Anasarca / Pleural effusion - improving 2. New diagnosis of Cirrhosis with pancytopenia/coagulopathy/hypoalbuminemia 3. Morbid obesity BMI 41.3 4. Chronic diastolic heart failure 5. SAGAR 6. Hypokalemia PLAN: * Cont diuresis - Lasix changed to PO * Cont Aldactone * BMP in AM * Stress test negative * Cont fluid rest Review of Systems - Review of Systems Respiratory: negative: Cough, Dry, Shortness of Breath, Hemoptysis, SOB with Excertion, Pleuritic Pain, Sputum, Wheezing Cardiovascular: negative: chest pain, palpitations, orthopnea, paroxysmal nocturnal dyspnea, edema, light headedness, other Gastrointestinal: Constipation. negative: Nausea, Vomiting, Abdominal Pain, Diarrhea, Melena, Hematochezia, Other - Medications/Allergies Allergies/Adverse Reactions: Allergies Allergy/AdvReac Type Severity Reaction Status Date / Time No Known Allergies Allergy Verified 06/03/17 22:47 Medications: Current Medications Furosemide (Lasix) 20 mg PO 0900,1400 [facility] Last Admin: 06/07/17 13:36 Dose: 20 mg Hydralazine HCl (Apresoline) 10 mg SLOW IVP Q4H PRN PRN Reason: SBP > 180 Lisinopril (Zestril) 20 mg PO DAILY [facility] Last Admin: 06/07/17 09:31 Dose: 20 mg Ondansetron HCl (Zofran Odt) 4 mg PO Q6H PRN PRN Reason: Nausea/Vomiting Last Admin: 06/04/17 23:36 Dose: 4 mg Sodium Chloride (Flush - Normal Saline) 10 ml IVF Q12HR [facility] Last Admin: 06/07/17 09:31 Dose: 10 ml Sodium Chloride (Flush - Normal Saline) 10 ml IVF PRN PRN PRN Reason: Saline Flush Spironolactone (Aldactone) 25 mg PO BID-[facility]
[2017-06-07] MEDS: Spironolactone 25 MG TAB PO SCH (17:12)
[2017-06-07] MEDS ORDERED: Cyclobenzaprine 10 MG TAB PO PRN (17:24)
[2017-06-07] MEDS ORDERED: Magnesium 2 GM/NS 0.9% 100 ML 2 GM in Premix Bag 1 BAG IVPB PRN (17:30)
--- NOTE | 2017-06-07 19:08 | PRG ---
DATE OF SERVICE: 06/07/2017 SUBJECTIVE: Ms. Palma is without complaints today except for cramping in her legs. She states she has had quite a bit of urine output today. MEDICATIONS: Flexeril 5 mg p.o. t.i.d., furosemide 20 b.i.d., hydralazine, lisinopril, magnesium chl oride, magnesium sulfate, Zofran, polystyrene, Senokot, and Aldactone. PHYSICAL EXAMINATION: VITAL SIGNS: Temperature is 97, pulse 70, blood pressure 140/70. In's and out's 40 in, and 220 out. Negative 1720 today and negative 1650 yesterday. Weights 225 down from 240 on the . LABORATORY STUDIES: White count 2.6, hemoglobin 9.4, platelet count 63,000. Chemistry: Bilirubin 2 , AST and ALT of 64 and 25, total IgE is elevated, autoimmune markers pending. Hepatitis A, B, and C negative. ASSESSMENT: New onset history of heart failure and now diagnosis of cirrhosis, this seems to be prob ably the bigger issue in terms of fluid retention. The etiology is unclear. Fatty liver would be mo st likely. RECOMMENDATIONS: Would consolidate diuretics to 40 mg of Lasix and 100 mg of Aldactone, would hold t he cyclobenzaprine. She is pretty sleepy now, has a potential making her encephalopathic.
[2017-06-07] MEDS: Magnesium Chloride 64 MG TAB PO SCH (20:39)
[2017-06-07] MEDS: Senokot S 8.6-50 MG TAB PO SCH (20:39)
[2017-06-08 06:24] LABS: Anion Gap 11 mmol/L (10-20); BUN (Urea Nitrogen) 9 mg/dL (9.8-20.1); Calc. Creatinine Clearance 139 mL/min (70-130); Calcium 8.1 mg/dL (7.8-10.44); Carbon Dioxide 24 mmol/L (22-29); Chloride 104 mmol/L (98-107); Estimated GFR-MDRD 83; Glucose 83 mg/dL (70-105); Magnesium 2.1 mg/dL (1.6-2.6); Potassium 3.9 mmol/L (3.5-5.1); Sodium 135 mmol/L (136-145)
[2017-06-08 07:33] VITALS: BMI 41.3
--- NOTE | 2017-06-08 08:05 | PRG ---
DATE OF SERVICE: 06/08/2017 Ms. Palma is doing well, no complaints. She is not short of breath. PHYSICAL EXAMINATION: VITAL SIGNS: Blood pressure is 137/83, pulse 72, it is regular. LUNGS: Clear. CARDIAC: Normal S1, normal S2. Stress test was normal. There is no ischemia. ASSESSMENT: 1. Congestive heart failure, diastolic, improved. 2. No evidence of any ischemia. 3. Cirrhosis. 4. Chronic anemia. PLAN: 1. She is on furosemide 20 mg twice a day. 2. Spironolactone 25 mg twice daily. 3. Lisinopril 20 mg a day. 4. Will need to have a potassium checked at least in a week. No other recommendations at this point.
[2017-06-08] MEDS: Furosemide 20 MG TAB PO SCH ×2 (08:28→13:43)
[2017-06-08] MEDS: Lisinopril 20 MG TAB PO SCH (08:28)
[2017-06-08] MEDS: Spironolactone 25 MG TAB PO SCH ×2 (08:28→17:18)
[2017-06-08] MEDS: Senokot S 8.6-50 MG TAB PO SCH (08:28)
[2017-06-08] MEDS: Magnesium Chloride 64 MG TAB PO SCH ×2 (08:28→19:45)
[2017-06-08] MEDS ORDERED: Polyethylene Glycol 3350 17 GM Packet PO SCH (09:00)
[2017-06-08 12:44] LABS: ANA Symphony (Qualitative) Negative (Negative); EliA Vaculitis New Method **** NEW METHOD ****; Mitochondrial Ab 1.3 U/mL (<4 Negative)
--- NOTE | 2017-06-08 13:27 | PRG ---
DATE OF SERVICE: 06/08/2017 Ms. Palma is doing well postoperatively. PHYSICAL EXAMINATION: VITAL SIGNS: Blood pressure is in the 90s systolic. Pulse is in the 70s, it is sinus. LUNGS: Clear. CARDIAC: Normal S1, normal S2. ASSESSMENT: 1. 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 2. Previous embolization. PLAN: Continue supportive care. The patient is doing well.
--- NOTE | 2017-06-08 20:25 | PDOC.PN ---
- Subjective Encounter Start Date: 06/08/17 Encounter Start Time: 10:00 Patient seen and examined for Anasarca. No new complaints. No overnight events. Intermittent confusion per family. - Objective Resuscitation Status: Resuscitation Status FULL:Full Resuscitation MAR Reviewed: Yes Vital Signs & Weight: Vital Signs (12 hours) Temp Pulse Pulse Pulse Resp BP BP 06/08/17 19:09 99.0 F 76 16 06/08/17 17:18 06/08/17 15:31 98.8 F 75 18 06/08/17 11:52 98.7 F 82 16 06/08/17 08:38 73 70 130/67 06/08/17 08:28 137/87 BP BP BP Pulse Ox Pulse Ox Pulse Ox 06/08/17 19:09 118/73 95 06/08/17 17:18 119/69 06/08/17 15:31 98/48 L 96 06/08/17 11:52 141/86 H 97 06/08/17 08:38 119/72 97 93 L 06/08/17 08:28 Weight Weight 226 lb 3.2 oz I&O: 06/07/17 06/08/17 06/09/17 06:59 06:59 06:59 Intake Total 132 745 1492 Output Total 2545 2800 800 Balance -1615 -1960 310 Result Diagrams: 06/07/17 05:44 06/08/17 05:54 EKG Reviewed by me: Yes (Tele SR) Phys Exam - Physical Examination Constitutional: NAD Respiratory: no wheezing, no rhonchi Cardiovascular: RRR, no rub Gastrointestinal: soft, non-tender, positive bowel sounds Musculoskeletal: edema present Neurological: non-focal, moves all 4 limbs ?Asterixis Dx/Plan - Plan DVT proph w/SCDs IMPRESSION: 1. SOB/Anasarca / Pleural effusion - improving 2. Hepatic Encephalopathy/New diagnosis of Cirrhosis with pancytopenia/ coagulopathy/hypoalbuminemia 3. Morbid obesity BMI 41.3 4. Chronic diastolic heart failure 5. SAGAR 6. Hypokalemia PLAN: * Add Lactulose * Cont diuresis - Lasix changed to PO * Cont Aldactone * BMP/Ammonia in AM * Cont current meds as below * DC Lisinopril due to hypotension Laboratory Tests 06/08/17 11:48 Ammonia 92 H Review of Systems - Review of Systems Respiratory: negative: Cough, Dry, Shortness of Breath, Hemoptysis, SOB with Excertion, Pleuritic Pain, Sputum, Wheezing Cardiovascular: negative: chest pain, palpitations, orthopnea, paroxysmal nocturnal dyspnea, edema, light headedness, other - Medications/Allergies Allergies/Adverse Reactions: Allergies Allergy/AdvReac Type Severity Reaction Status Date / Time No Known Allergies Allergy Verified 06/03/17 22:47 Medications: Current Medications Furosemide (Lasix) 20 mg PO 0900,1400 [facility] Last Admin: 06/08/17 13:43 Dose: 20 mg Hydralazine HCl (Apresoline) 10 mg SLOW IVP Q4H PRN PRN Reason: SBP > 180 Lactulose (Lactulose) 10 gm PO TID [facility] Last Admin: 06/08/17 19:45 Dose: 10 gm Magnesium Chloride (Slow-Mag) 64 mg PO BID [facility] Last Admin: 06/08/17 19:45 Dose: 64 mg Ondansetron HCl (Zofran Odt) 4 mg PO Q6H PRN PRN Reason: Nausea/Vomiting Last Admin: 06/04/17 23:36 Dose: 4 mg Sodium Chloride (Flush - Normal Saline) 10 ml IVF Q12HR [facility] Last Admin: 06/08/17 19:46 Dose: 10 ml Sodium Chloride (Flush - Normal Saline) 10 ml IVF PRN PRN PRN Reason: Saline Flush Spironolactone (Aldactone) 25 mg PO BID-[facility] Last Admin: 06/08/17 17:18 Dose: 25 mg
[2017-06-09 04:32] LABS: Anion Gap 8 mmol/L (10-20); BUN (Urea Nitrogen) 10 mg/dL (9.8-20.1); Calc. Creatinine Clearance 143 mL/min (70-130); Calcium 8.3 mg/dL (7.8-10.44); Carbon Dioxide 26 mmol/L (22-29); Chloride 106 mmol/L (98-107); Estimated GFR-MDRD 85; Glucose 81 mg/dL (70-105); Sodium 136 mmol/L (136-145)
[2017-06-09] MEDS: Spironolactone 25 MG TAB PO SCH ×2 (08:06→16:40)
[2017-06-09] MEDS: Furosemide 20 MG TAB PO SCH ×2 (08:06→13:46)
[2017-06-09] MEDS: Magnesium Chloride 64 MG TAB PO SCH (08:10)
--- NOTE | 2017-06-09 15:13 | DIS ---
DATE OF DISCHARGE: 06/09/2017 DISCHARGE DISPOSITION: Home. FOLLOWUP: 1. Follow up with primary care physician at [facility] in 1 week. 2. Follow up with Dr. Jones in 2-4 weeks. 3. Chest x-ray after 4 weeks is recommended. Primary care physician advised to follow. 4. Follow with Gastroenterology Clinic, Dr. Kiran in 2 weeks. 5. Follow up with Dr. Pacheco in 2 weeks. The patient was seen and examined on the day of discharge. Denies any new complaints, no chest pain, shortness of breath, palpitations reported. SIGNIFICANT LABORATORY DATA AND IMAGING DATA: 1. CBC showed WBC 3.1 with hemoglobin 9.3, hematocrit 29, platelet count of 49. 2. D-dimer was 3.43. 3. INR 1.7 with PT of 20.8. 4. Ammonia yesterday was 92, today was 54. 5. Total bilirubin 2.0 with AST 64, albumin of 3.0. 6. Vitamin B12, folic acid and TSH were normal. 7. Troponins were negative. Potassium on admission was 2.7. 8. Urinalysis was negative. 9. GERMAINE was negative. Total IgG was 2141, IgM was 142. 10. Human immunodeficiency virus was negative. Hepatitis profile was negative. 11. Chest x-ray on admission showed moderate size right pleural effusion and atelectasis. 12. CT angiogram of the chest was negative for pulmonary embolism. 13. Abdominal ultrasound was negative for ascites. 14. Cardiolite stress test was negative for reversible ischemia. 15. Right upper quadrant ultrasound, it showed nodular coarse liver echogenicity with some contour n odularity evidence for cirrhosis. There was no ductal dilatation. 16. Echocardiogram showed left ventricular ejection fraction 55%-60% with diastolic dysfunction, mod erate mitral regurgitation. BRIEF HOSPITAL COURSE: The patient is a 57-year-old female with hypertension who presented to the em ergency room with shortness of breath. Please refer to the history and physical dated 06/03/2017 for further details. The patient was admitted to the hospital with diagnosis of shortness of breath, anasarca, along with right-sided pleural effusion. A workup was consistent with cirrhosis. She also had pancytopenia wit h coagulopathy and hypoalbuminemia. She showed good improvement with diuretics. Her weight on the d ay of discharge is 227 pounds from 240 pounds on admission. The patient was evaluated by Cardiology, Dr. Pacheco; Pulmonary, Dr. Jones and Gastroenterology, Dr. Kiran. Lactulose was added yesterday due to hepatic encephalopathy. Patient was extensively counseled on low salt diet and fluid restrict ion. TESTS PENDING AT DISCHARGE: 1. Alpha-1 antitrypsin. 2. Ceruloplasmin. 3. Smooth muscle antibodies. Primary care physician advised to follow. The patient was seen and examined on the day of discharge, denies any new complaints. DISCHARGE MEDICATIONS: Lasix 20 mg twice a day, lactulose 10 mg twice a day to be titrated for 3 bow el movements daily, Aldactone 25 mg twice a day. FINAL DIAGNOSES: 1. Shortness of breath with anasarca on admission, multifactorial. 2. Right-sided pleural effusion. 3. Hepatic encephalopathy. 4. New diagnosis of cirrhosis. 5. Pancytopenia, coagulopathy and hypoalbuminemia secondary to cirrhosis. 6. Hypertension. 7. Morbid obesity with body mass index 41.3. 8. Chronic diastolic heart failure. 9. Suspected obstructive sleep apnea, sleep study as outpatient is recommended. 10. Hypokalemia, corrected. 11. Abnormal liver function tests secondary to cirrhosis. Plan of care was discussed with the patient and the family, they stated understanding.
[2017-06-09 15:26] LABS: Smooth Muscle Total ABS 45 Units (0-19)
[2017-06-09 15:45] VITALS: BP 145/91; TEMP 98.4
[2017-06-10 13:19] LABS: Alpha-1-Antitrypsin 149 mg/dL (90-200)
== END 2017-06-09 18:08 | disposition home or self-care (01) | DRG 432 ==
LOC: ERS 15:00 → 2SE 18:49
PROVIDERS: ADMIT Internal Medicine; ATTEND Internal Medicine
DX: K74.60 Unspecified cirrhosis of liver (principal); J96.01 Acute respiratory failure with hypoxia; I50.33 Acute on chronic diastolic (congestive) heart failure; J90 Pleural effusion, not elsewhere classified; D61.818 Other pancytopenia; D68.9 Coagulation defect, unspecified; Z68.41 Body mass index [BMI] 40.0-44.9, adult; J98.11 Atelectasis; K72.90 Hepatic failure, unspecified without coma; I11.0 Hypertensive heart disease with heart failure; E88.09 Other disorders of plasma-protein metabolism, not elsewhere classified; E66.01 Morbid (severe) obesity due to excess calories; G47.33 Obstructive sleep apnea (adult) (pediatric); E87.6 Hypokalemia; I34.0 Nonrheumatic mitral (valve) insufficiency; E87.70 Fluid overload, unspecified
CPT/HCPCS: 36415; 36416; 71045; 71046; 71275; 76705; 78452; 80048; 80053; 80074; 80076; 81001; 82103; 82104; 82105; 82140; 82390; 82553; 82607; 82746; 83516; 83735; 83880; 84100; 84443; 84484; 84703; 85025; 85060; 85379; 85610; 86038; 86225; 87389; 93005; 93017; 93306; 93798; 96365; 96366; A4216; A9500; G8978-GP-CJ; G8979-GP-CJ; G8980-GP-CJ; G8987-GO-CI; G8988-GO-CI; G8989-GO-CI; J0153; J0360; J1650; J1940; J3475; J3480; J7050; Q0162

== ENCOUNTER 2017-06-29 13:20 | Outpatient (CLI) | payer OTHER ==
--- NOTE | 2017-06-29 15:11 | RAD ---
TWO VIEWS CHEST: Date: 06-29-17 Comparison: 06-05-17 History: Dyspnea. FINDINGS: There is no pneumothorax or pleural fluid. No focal consolidation or alveolar edema. Heart and medias tinal contours are stable. There is elevation of the right hemidiaphragm. IMPRESSION: No acute findings. POS: [facility]
== END 2017-06-29 13:21 | disposition home or self-care (01) ==
LOC: RAD 13:20
PROVIDERS: ATTEND Internal Medicine
DX: R06.00 Dyspnea, unspecified (principal)
CPT/HCPCS: 71046

== ENCOUNTER 2018-02-02 14:31 | Emergency (ER) | payer SELFPAY | END 2018-02-02 15:14 | disposition home or self-care (01) | LOC: ERS 14:31 | DX: K14.8 Other diseases of tongue (principal); I11.0 Hypertensive heart disease with heart failure; I50.9 Heart failure, unspecified; Z79.899 Other long term (current) drug therapy | CPT/HCPCS: 99282 ==

== ENCOUNTER 2018-03-27 01:04 | Observation (INO) | payer OTHER, SELFPAY ==
[2018-03-27 01:44] LABS: Hemoglobin 13.4 g/dL (12.0-16.0); Mean Corpuscular HGB CONC 32.9 g/dL (32.0-36.0); Mean Corpuscular Hemoglobin 31.9 pg (27.0-31.0); Mean Corpuscular Volume 97.1 fL (78.0-98.0); RBC Distribution Width 14.6 % (11.5-14.5); Red Blood Cell (RBC) Count 4.21 mill/uL (4.20-5.40); White Blood Cell (WBC) Count 2.8 thou/uL (4.8-10.8)
[2018-03-27] MEDS ORDERED: Aspirin Chewable 81 MG TAB ONE (01:58)
[2018-03-27 02:01] LABS: ALT (SGPT) 28 U/L (8-55); AST (SGOT) 70 U/L (5-34); Albumin 3.5 g/dL (3.5-5.0); Alkaline Phosphatase 169 U/L (40-150); Anion Gap 9 mmol/L (10-20); BUN (Urea Nitrogen) 8 mg/dL (9.8-20.1); Bilirubin, Total 1.6 mg/dL (0.2-1.2); Calc. Creatinine Clearance 0 mL/min (70-130); Carbon Dioxide 26 mmol/L (22-29); Chloride 106 mmol/L (98-107); Estimated GFR-MDRD 73; Globulin 4.1 g/dL (2.4-3.5); Glucose 130 mg/dL (70-105); Lipase 49 U/L (8-78); Potassium 3.8 mmol/L (3.5-5.1); Protein, Total 7.6 g/dL (6.0-8.3); Sodium 137 mmol/L (136-145)
[2018-03-27 02:10] LABS: #Eosinphils 0.1 thou/uL (0.0-0.7); #Lymphocytes 0.5 thou/uL (1.20-3.40); #Monocytes 0.2 thou/uL (0.11-0.59); #Neutrophils 1.9 thou/uL (1.40-6.50); %Basophils 0.9 % (0.0-1.0); %Eosinophils 2.2 % (0.0-10.0); %Lymphocytes 19.1 % (21.0-51.0); %Monocytes 8.8 % (0.0-10.0); Mean Platelet Volume 9.6 fL (7.4-10.4); Platelet Count 47 thou/uL (130-400); Platelet Morphology Comment Appears Decreased
[2018-03-27 02:15] LABS: INR-International Normal Ratio 1.4; PTT 37.6 SEC (22.9-36.1); Prothrombin Time 17.4 SEC (12.0-14.7)
[2018-03-27 03:55] LABS: Bilirubin Negative (Negative); Blood, Urine Negative (Negative); Glucose, Urine (Dipstick) Negative (Negative); Leukocyte Negative (Negative); Nitrite Negative (Negative); Protein, Urine (Dipstick) Negative (Neg-Trace); Specific Gravity, Urine 1.015 (1.005-1.030); Urobilinogen > or = 8.0 mg/dL (0.2-1.0)
[2018-03-27 03:56] LABS: Clarity Clear (Clear)
[2018-03-27] MEDS ORDERED: Ondansetron ODT 4 MG TAB SL PRN (06:02)
[2018-03-27] MEDS ORDERED: Acetaminophen 325 MG TAB PO PRN (06:02)
[2018-03-27] MEDS ORDERED: Ondansetron PF 4 MG/2 ML Vial IVP PRN (06:02)
[2018-03-27 06:33] VITALS: BMI 41.5
[2018-03-27] MEDS: Sodium Chloride 0.9% 1,000 ML IV SCH ×2 (07:16→16:29)
--- NOTE | 2018-03-27 08:16 | RAD ---
SINGLE VIEW OF CHEST: Date: 03/27/18 COMPARISON: 06/03/17. HISTORY: Chest pain and sore throat. FINDINGS: Single view of the chest shows a normal sized cardiomediastinal silhouette. There is no evidence of c onsolidation, mass, or pleural effusion. The bones are unremarkable. IMPRESSION: No evidence of acute cardiopulmonary disease. POS: [facility]
[2018-03-27] MEDS: Furosemide 20 MG TAB PO SCH (13:26)
--- NOTE | 2018-03-27 13:57 | HP ---
REASON FOR ADMISSION: Chest pain and neck pain. HISTORY OF PRESENT ILLNESS AND REVIEW OF SYSTEMS: Ms. Palma is a 57-year-old woman with a background history of hypertension, CHF, and fatty induced liver cirrhosis, who presented to the ED after being brought in by her sister due to complaints of left-sided chest pain. The patient insists she recalls having mild discomfort in the left side of her chest, which she rates a 1/10 in severity, described as an aching. According to the patient, she was alarmed more so by neck pain and associated difficulty swallowing. The patient has had no further issues with swallowing and does not suffer from dysphagia despite history of a previous stroke. She does have slurred speech at baseline associated with her previous stroke and chronic issues with hepatic encephalopathy. The patient states the neck pain is something chronic due to previous falls. Yesterday, however, what caused her to become anxious and panic was the fact that she had an episode of choking while drinking fluids. At present, she states she feels well and in her usual state of health. Denies having any chest pain at the moment. Has not had any further episodes of pain in her chest from what she experienced yesterday evening at home. Denies having any shortness of breath. Has not had any recent cough or hemoptysis. No recent fevers, chills, or sweats. Denies having any headaches or dizziness. No nausea or vomiting. Denies any abdominal pain or cramping. Reports having a loose stool this morning after receiving lactulose in the ED. Denies having any urinary symptoms. All other review of systems is negative. According to the patient, she does not have insurance, but continues to be followed by Dr. Kiran. PAST MEDICAL HISTORY: 1. Fatty induced liver cirrhosis. 2. Hypertension. 3. CHF, diastolic dysfunction. 4. History of a pituitary tumor, status post partial excision. 5. Previous cholecystectomy. SOCIAL HISTORY: The patient lives with her niece. Denies any alcohol use or drug use. She does not smoke. ALLERGIES: NO KNOWN DRUG ALLERGIES. CURRENT MEDICATIONS: 1. Lactulose 10 mg t.i.d. 2. Furosemide 40 mg once daily. 3. Spironolactone 50 mg p.o. once daily. PHYSICAL EXAMINATION: GENERAL: The patient appears well developed and well nourished. She is in no acute distress. Found resting comfortably in bed this morning. VITAL SIGNS: Temperature 98.3, pulse 66, respirations 16, O2 saturation 98% on room air, and blood pressure 140/87. HEENT: Normocephalic and atraumatic. Pupils are equal, round, and reactive to light. Extraocular movements normal. No nystagmus present. Oropharynx is clear. NECK: Supple without lymphadenopathy. No cervical spine tenderness or deformities. Full range of motion. CARDIAC: Regular rate and rhythm without audible murmurs, rubs, or gallops. LUNGS: Clear to auscultation bilaterally without wheezes, rales, or rhonchi. ABDOMEN: Obese, soft. No guarding or rigidity. No renal angle tenderness. EXTREMITIES: No edema or swelling. No calf tenderness. NEUROLOGIC: Alert and oriented x3. No focal deficits. Slightly slurred speech, confirmed by sister to be at baseline. Facial movements normal. No tongue deviation. Power 5/5 in all limbs with sensation intact. SKIN: Without rash or jaundice. LABORATORY DATA: White blood count 2.8, chronically low; hemoglobin 13.4; hematocrit 40.8; platelets 47, chronically low. PT 7.4, INR 1.4, PTT 37.6. Sodium 137, potassium 3.8, BUN 8, creatinine 0.81, GFR 73, glucose 130, calcium 9, magnesium 1.9, total bilirubin 1.6, AST 70, ALT 28, alkaline phosphatase 169, ammonia 108. Troponin I 0.012, 0.018, 0.016. BNP 49.8. Lipase 49. TSH 2.8919. Urinalysis unremarkable. IMAGING DATA: Chest x-ray, 03/27/2018: No evidence of acute cardiopulmonary disease. IMPRESSION AND PLAN: Ms. Palma is a 57-year-old woman being admitted for management of the following. 1. Mild hepatic encephalopathy. Ammonia was raised at 108. She normally takes lactulose 10 mg three times a day at home. She was given a dose of 30 mg in the ED. We will increase her usual dose of lactulose to 20 mg p.o. t.i.d. 2. Chest pain. Per the patient, this was minimal and has since resolved. Troponins unremarkable. BNP 49. She did undergo investigations in May 2017, including an echo and stress test. Stress test at that time showed no reversible ischemia. The echo demonstrated an ejection fraction of 55% to 60% with evidence of diastolic dysfunction, trace tricuspid regurgitation, and moderate mitral regurgitation. There is also aortic valve sclerosis. Per Dr. Morrison, no indications for repeat cardiac investigations at present. 3. Dysphagia. The patient states she was very alarmed mainly by difficulty swallowing fluids yesterday and denies any other focal neuro deficits or symptoms. No associated facial numbness or weakness. No slurred speech or vision changes. No extremity weakness. The dysphagia has resolved. Given the history of chronically slurred speech and previous stroke, we have requested a consult with Speech Therapy for swallowing assessment. 4. Hypertension. Resume home medications. Monitor blood pressure. 5. Diet. Consult placed with dietitian, given hyperammonemia and history of congestive heart failure, requiring fluid restrictions at home. The patient according to the sister is struggling to maintain an appropriate diet and has recently gained weight. 6. Neck pain. Fully resolved. 7. Venous thromboembolism prophylaxis. 8. Gastrointestinal prophylaxis. The patient's case was discussed with Dr. Morrison who agrees with the plan of care as described above. Job ID: [id number]
[2018-03-27] MEDS: Spironolactone 25 MG TAB PO SCH (16:39)
[2018-03-27] MEDS ORDERED: Non-Formulary Item 1 EACH (Lactulose [Lactulose] 10 GM) PO SCH (21:00)
[2018-03-28] MEDS: Furosemide 20 MG TAB PO SCH (08:48)
[2018-03-28] MEDS: Spironolactone 25 MG TAB PO SCH (08:48)
[2018-03-28 08:56] VITALS: BP 111/55; TEMP 98.2
--- NOTE | 2018-03-30 10:57 | DIS ---
DATE OF ADMISSION: 03/27/2018 DATE OF DISCHARGE: 03/28/2018 CONSULTING PHYSICIANS: None. DISCHARGE DIAGNOSES: 1. Mild hepatic encephalopathy. 2. Fatty liver cirrhosis. 3. Congestive heart failure, diastolic dysfunction. 4. Hypertension. 5. History of pituitary tumor, status post partial excision. HOSPITAL COURSE: Ms. Palma is a 57-year-old woman, who was brought in with concerns for chest pain by her sister. However, the patient states that her main concern had been a choking episode and difficulty swallowing that occurred while she was at home. She states this caused her to panic and hyperventilate, therefore causing discomfort in her chest. The patient underwent multiple investigations including a chest x-ray that demonstrated no evidence of acute cardiopulmonary disease. In the ED, she had an ECG that was unremarkable, showing a normal sinus rhythm and similar in appearance to old ECG done in May 2017. She had serial troponins done, which were negative. BNP was also done, which was normal at 49.8. Initial laboratory studies were notable for an elevated ammonia level of 108. The patient was given lactulose and admitted for further management. She quickly recovered and has had significant improvement in terms of her slightly slurred speech. She did undergo Speech Therapy for swallow assessment, which was unremarkable. On the day of discharge, the patient is doing significantly better and is without any complaints. The patient did undergo a recent stress test in May 2017, which showed normal cardiac SPECT with ejection fraction and wall motion unremarkable. She had an echocardiogram done at that time that showed an EF of 55% to 60% as well as flow reversal suggestive of diastolic dysfunction. The left atrium was mildly dilated with moderate mitral regurgitation present. The aortic valve was sclerotic and trace tricuspid regurgitation also seen. Given these recent investigations and the fact that she denies having any complaint of chest pain with negative troponins and normal ECG, it was felt she did not require further investigations at this present time. REVIEW OF SYSTEMS: The patient denies having any further choking episodes or difficulty swallowing. She has been tolerating a regular diet. The patient denies having any fevers, chills, or sweats. Denies having any headaches or dizziness. No chest pain, palpitations, or shortness of breath. No abdominal pain or cramping. Denies having any urinary symptoms. She has been moving her bowels, which were initially elicited to the lactulose given in the ED. She had been complaining of posterior neck pain, which has fully resolved. All other review of systems are negative. PHYSICAL EXAMINATION: GENERAL: The patient appears more alert with normal speech compared to slightly slurred speech yesterday, which the sister indicated was her usual baseline. She seemed to be in great spirits. VITAL SIGNS: Temperature 98.2, pulse 68, respirations 18, O2 saturation 96% on room air, blood pressure 111/55. HEENT: Normocephalic and atraumatic. Pupils are equal, round, and reactive to light. Sclerae are anicteric. Extraocular movements normal with no nystagmus present. Oropharynx is clear. NECK: Supple with full range of motion and no tenderness. CARDIAC: Regular rate and rhythm. LUNGS: Clear to auscultation bilaterally. ABDOMEN: Soft, nontender, nondistended. Normoactive bowel sounds present. No guarding or rigidity. EXTREMITIES: Without edema. NEUROLOGIC: Alert and oriented x3. Facial movements normal. Speech normal. SKIN: Without rash or jaundice. LABORATORY DATA AND INVESTIGATIONS: As mentioned above in HPI. DISCHARGE MEDICATIONS: The patient was given a prescription for lactulose, which we increased to 20 g t.i.d. She is otherwise advised to resume all other home medications. CONDITION: Stable on discharge. DIET: Heart healthy. ACTIVITY: As tolerated. FOLLOWUP: The patient was advised to establish care with a primary care physician and given information for [facility] as well as [facility]. She does follow up with Dr. Kiran despite not having insurance for continued management of her cirrhosis. DISPOSITION: The patient medically cleared for discharge to home on March 28, 2018. The patient's case was discussed with . Agrees with plan of care as described above. Job ID: [id number]
--- NOTE | 2018-04-01 17:16 | EKG ---
Test Reason : CP Blood Pressure : / mmHG Vent. Rate : 093 BPM Atrial Rate : 093 BPM P-R Int : 198 ms QRS Dur : 094 ms QT Int : 384 ms P-R-T Axes : 017 -16 064 degrees QTc Int : 477 ms Normal sinus rhythm Cannot rule out Anterior infarct , age undetermined Abnormal ECG Confirmed by NELL WALKER, PRATIBHA ([id number]), visual effects editor ANUJA PARRISH ([id number]) on 04/01/2018 5:16:33 PM Referred By: Confirmed By:PRATIBHA CAMEJO MD
== END 2018-03-28 12:55 | disposition home or self-care (01) ==
LOC: ERS 01:04 → 2SW 02:38
PROVIDERS: ADMIT Hospitalist; ATTEND Hospitalist
DX: K72.90 Hepatic failure, unspecified without coma (principal); K76.0 Fatty (change of) liver, not elsewhere classified; I11.0 Hypertensive heart disease with heart failure; I50.30 Unspecified diastolic (congestive) heart failure; R13.10 Dysphagia, unspecified; M54.2 Cervicalgia; R07.9 Chest pain, unspecified; Z79.899 Other long term (current) drug therapy
CPT/HCPCS: 36415; 71045; 80053; 81003; 82140; 83690; 83735; 83880; 84443; 84484; 85025; 85610; 85730; 90471; 90732; 93005; 94760; G0009; G0378

== ENCOUNTER 2018-08-22 19:03 | Emergency (ER) | payer MEDICARE ==
[~2018-08-22 19:03] MED LIST: ISOVUE-370 76%-LOCM 1 ML ONE
[2018-08-22 20:04] LABS: #Eosinphils 0.1 thou/uL (0.0-0.7); #Lymphocytes 0.8 thou/uL (1.20-3.40); #Monocytes 0.2 thou/uL (0.11-0.59); #Neutrophils 2.2 thou/uL (1.40-6.50); %Basophils 0.7 % (0.0-1.0); %Eosinophils 2.9 % (0.0-10.0); %Lymphocytes 23.7 % (21.0-51.0); %Monocytes 7.2 % (0.0-10.0); %Neutrophils 65.4 % (42.0-75.0); Hemoglobin 13.9 g/dL (12.0-16.0); Mean Corpuscular HGB CONC 33.4 g/dL (32.0-36.0); Mean Corpuscular Hemoglobin 34.4 pg (27.0-31.0); Mean Platelet Volume 8.6 fL (7.4-10.4); Platelet Count 42 thou/uL (130-400); RBC Distribution Width 13.9 % (11.5-14.5); Red Blood Cell (RBC) Count 4.04 mill/uL (4.20-5.40); White Blood Cell (WBC) Count 3.3 thou/uL (4.8-10.8)
[2018-08-22 20:12] LABS: Bilirubin Negative (Negative); Blood, Urine Negative (Negative); Clarity Clear (Clear); Glucose, Urine (Dipstick) Normal (Negative); Leukocyte Negative Leu/uL (Negative); Nitrite Negative (Negative); Protein, Urine (Dipstick) Negative (Neg-Trace); Urobilinogen Normal mg/dL (Less than 2)
[2018-08-22 20:37] LABS: ALT (SGPT) 35 U/L (8-55); AST (SGOT) 85 U/L (5-34); Albumin 3.3 g/dL (3.5-5.0); Alkaline Phosphatase 140 U/L (40-150); Anion Gap 12 mmol/L (10-20); BUN (Urea Nitrogen) 6 mg/dL (9.8-20.1); Bilirubin, Total 2.4 mg/dL (0.2-1.2); Calc. Creatinine Clearance 0 mL/min (70-130); Calcium 8.9 mg/dL (7.8-10.44); Carbon Dioxide 24 mmol/L (22-29); Chloride 103 mmol/L (98-107); Estimated GFR-MDRD 79; Globulin 3.9 g/dL (2.4-3.5); Glucose 77 mg/dL (70-105); Lipase 34 U/L (8-78); Protein, Total 7.2 g/dL (6.0-8.3); Sodium 135 mmol/L (136-145)
[2018-08-22] MEDS ORDERED: Ondansetron ODT 4 MG TAB ONE (21:32)
--- NOTE | 2018-08-22 22:14 | CT ---
EXAM: CT Abdomen Pelvis W Con PROVIDED CLINICAL HISTORY: Abdominal pain COMPARISON: None FINDINGS: The visualized lung parenchyma is free of significant opacity. Conspicuous paraesophageal varices are noted. Peripheral nodular contour to the liver, compatible with cirrhosis. Marked splenomegaly (15.6 cm in c raniocaudal dimension). Pancreas, kidneys and adrenal glands appear unremarkable. Postcholecystectomy. No bowel dilatation, inflammatory fat stranding, free fluid or free air apparent. The appendix appear s normal. The osseous structures demonstrate no concerning lytic or blastic lesions. IMPRESSION: 1. Findings of cirrhosis and portal hypertension with conspicuous paraesophageal varices. 2. No evidence for an acute process.
== END 2018-08-22 23:07 | disposition home or self-care (01) ==
LOC: ERS 19:03
DX: R10.9 Unspecified abdominal pain (principal); R11.0 Nausea; J30.2 Other seasonal allergic rhinitis; I11.0 Hypertensive heart disease with heart failure; I50.9 Heart failure, unspecified; K74.60 Unspecified cirrhosis of liver; Z79.899 Other long term (current) drug therapy
CPT/HCPCS: 36415; 74177; 80053; 81003; 82140; 83690; 84484; 85025; 93005; Q0162; Q9966

== ENCOUNTER 2018-09-05 04:26 | Emergency (ER) | payer MEDICARE ==
[2018-09-05] MEDS ORDERED: Ondansetron ODT 4 MG TAB ONE ×2 (05:31→06:18)
[2018-09-05 05:48] LABS: #Eosinphils 0.1 thou/uL (0.0-0.7); #Lymphocytes 0.6 thou/uL (1.20-3.40); #Monocytes 0.3 thou/uL (0.11-0.59); #Neutrophils 2.5 thou/uL (1.40-6.50); %Basophils 0.7 % (0.0-1.0); %Eosinophils 2.4 % (0.0-10.0); %Lymphocytes 16.9 % (21.0-51.0); %Monocytes 9.8 % (0.0-10.0); %Neutrophils 70.2 % (42.0-75.0); Hemoglobin 14.5 g/dL (12.0-16.0); Mean Corpuscular HGB CONC 33.9 g/dL (32.0-36.0); Mean Corpuscular Hemoglobin 35.4 pg (27.0-31.0); Mean Platelet Volume 9.1 fL (7.4-10.4); Platelet Count 41 thou/uL (130-400); RBC Distribution Width 13.7 % (11.5-14.5); Red Blood Cell (RBC) Count 4.11 mill/uL (4.20-5.40); White Blood Cell (WBC) Count 3.5 thou/uL (4.8-10.8)
[2018-09-05 06:09] LABS: ALT (SGPT) 31 U/L (8-55); AST (SGOT) 84 U/L (5-34); Albumin 3.2 g/dL (3.5-5.0); Alkaline Phosphatase 135 U/L (40-150); Anion Gap 13 mmol/L (10-20); BUN (Urea Nitrogen) 8 mg/dL (9.8-20.1); CK (CPK) 330 U/L (29-168); Calc. Creatinine Clearance 0 mL/min (70-130); Carbon Dioxide 22 mmol/L (22-29); Chloride 101 mmol/L (98-107); Estimated GFR-MDRD 76; Glucose 92 mg/dL (70-105); Lipase 29 U/L (8-78); Protein, Total 7.2 g/dL (6.0-8.3); Sodium 132 mmol/L (136-145)
--- NOTE | 2018-09-05 08:09 | RAD ---
PORTABLE CHEST ONE VIEW: 09/05/2018 5:16 a.m. HISTORY: Cirrhosis. Abdominal pain. Nausea and vomiting. COMPARISON: 03/27/2018 FINDINGS: The heart size is normal. The lungs are well expanded without focal areas of consolidation, pneumoth oraces, or pleural effusions. IMPRESSION: No acute process. POS: OFF
== END 2018-09-05 06:26 | disposition home or self-care (01) ==
LOC: ERS 04:26
DX: E72.20 Disorder of urea cycle metabolism, unspecified (principal); I11.0 Hypertensive heart disease with heart failure; I50.9 Heart failure, unspecified; K74.60 Unspecified cirrhosis of liver; Z79.899 Other long term (current) drug therapy
CPT/HCPCS: 36415; 71045; 80053; 82140; 82550; 83690; 83880; 84443; 84484; 85025; 93005; Q0162

== ENCOUNTER 2018-09-26 06:17 | Emergency (ER) | payer MEDICARE ==
[2018-09-26 07:10] LABS: #Eosinphils 0.1 thou/uL (0.0-0.7); #Lymphocytes 0.7 thou/uL (1.20-3.40); #Monocytes 0.4 thou/uL (0.11-0.59); #Neutrophils 2.9 thou/uL (1.40-6.50); %Basophils 0.7 % (0.0-1.0); %Eosinophils 2.7 % (0.0-10.0); %Lymphocytes 16.8 % (21.0-51.0); %Monocytes 8.9 % (0.0-10.0); %Neutrophils 70.9 % (42.0-75.0); Hemoglobin 14.6 g/dL (12.0-16.0); Mean Corpuscular HGB CONC 34.3 g/dL (32.0-36.0); Mean Corpuscular Hemoglobin 35.7 pg (27.0-31.0); Mean Platelet Volume 8.5 fL (7.4-10.4); Platelet Count 39 thou/uL (130-400); RBC Distribution Width 13.9 % (11.5-14.5); Red Blood Cell (RBC) Count 4.09 mill/uL (4.20-5.40); White Blood Cell (WBC) Count 4.1 thou/uL (4.8-10.8)
[2018-09-26 07:20] LABS: Acetaminophen Less than 6.0 mcg/mL (10.0-30.0); Alcohol Less than 10 mg/dL (Less than 10); Salicylate Less than 8.0 mg/dL (15.0-30.0)
[2018-09-26 07:21] LABS: ALT (SGPT) 35 U/L (8-55); AST (SGOT) 79 U/L (5-34); Albumin 3.3 g/dL (3.5-5.0); Alkaline Phosphatase 140 U/L (40-150); Anion Gap 14 mmol/L (10-20); BUN (Urea Nitrogen) 8 mg/dL (9.8-20.1); Bilirubin, Total 4.3 mg/dL (0.2-1.2); Calc. Creatinine Clearance 0 mL/min (70-130); Calcium 9.1 mg/dL (7.8-10.44); Carbon Dioxide 20 mmol/L (22-29); Chloride 102 mmol/L (98-107); Estimated GFR-MDRD 82; Globulin 3.8 g/dL (2.4-3.5); Glucose 90 mg/dL (70-105); Lipase 31 U/L (8-78); Potassium 3.7 mmol/L (3.5-5.1); Protein, Total 7.1 g/dL (6.0-8.3); Sodium 132 mmol/L (136-145)
[2018-09-26] MEDS ORDERED: Ondansetron ODT 8 MG TAB ONE (08:24)
== END 2018-09-26 09:16 | disposition home or self-care (01) ==
LOC: ERS 06:17
DX: K72.10 Chronic hepatic failure without coma (principal); I11.0 Hypertensive heart disease with heart failure; I50.9 Heart failure, unspecified; Z71.6 Tobacco abuse counseling; Z79.899 Other long term (current) drug therapy
CPT/HCPCS: 36415; 80053; 80307; 82140; 83690; 85025; 99283

== ENCOUNTER 2018-10-10 11:48 | Emergency (ER) | payer MEDICARE ==
[2018-10-10 12:46] LABS: #Eosinphils 0.1 thou/uL (0.0-0.7); #Lymphocytes 0.6 thou/uL (1.20-3.40); #Monocytes 0.3 thou/uL (0.11-0.59); #Neutrophils 2.5 thou/uL (1.40-6.50); %Basophils 0.8 % (0.0-1.0); %Eosinophils 1.7 % (0.0-10.0); %Lymphocytes 16.9 % (21.0-51.0); %Monocytes 9.5 % (0.0-10.0); %Neutrophils 71.1 % (42.0-75.0); Hemoglobin 14.7 g/dL (12.0-16.0); Mean Corpuscular HGB CONC 34.1 g/dL (32.0-36.0); Mean Corpuscular Hemoglobin 35.3 pg (27.0-31.0); Mean Platelet Volume 9.3 fL (7.4-10.4); Platelet Count 40 thou/uL (130-400); RBC Distribution Width 14.4 % (11.5-14.5); Red Blood Cell (RBC) Count 4.16 mill/uL (4.20-5.40); White Blood Cell (WBC) Count 3.5 thou/uL (4.8-10.8)
[2018-10-10 13:05] LABS: ALT (SGPT) 40 U/L (8-55); AST (SGOT) 88 U/L (5-34); Albumin 3.1 g/dL (3.5-5.0); Alkaline Phosphatase 124 U/L (40-150); Anion Gap 8 mmol/L (10-20); BUN (Urea Nitrogen) 8 mg/dL (9.8-20.1); Calc. Creatinine Clearance 0 mL/min (70-130); Calcium 8.5 mg/dL (7.8-10.44); Carbon Dioxide 24 mmol/L (22-29); Chloride 106 mmol/L (98-107); Estimated GFR-MDRD 89; Globulin 3.7 g/dL (2.4-3.5); Glucose 94 mg/dL (70-105); Lipase 30 U/L (8-78); Potassium 4.1 mmol/L (3.5-5.1); Protein, Total 6.8 g/dL (6.0-8.3); Sodium 134 mmol/L (136-145)
[2018-10-10] MEDS ORDERED: Ondansetron ODT 4 MG TAB ONE (13:38)
[2018-10-10] MEDS ORDERED: Meclizine HCl 25 MG TAB ONE (14:06)
[2018-10-10 14:51] LABS: Bilirubin Negative (Negative); Blood, Urine Negative (Negative); Clarity Clear (Clear); Glucose, Urine (Dipstick) Normal (Negative); Leukocyte Negative Leu/uL (Negative); Nitrite Negative (Negative); Protein, Urine (Dipstick) 10 mg/dL (Neg-Trace); Urobilinogen 6 mg/dL (Less than 2)
== END 2018-10-10 15:20 | disposition home or self-care (01) ==
LOC: ERS 11:48
DX: R42 Dizziness and giddiness (principal); R11.0 Nausea; E72.20 Disorder of urea cycle metabolism, unspecified; I11.0 Hypertensive heart disease with heart failure; I50.9 Heart failure, unspecified
CPT/HCPCS: 36415; 80053; 81003; 82140; 83690; 85025; 93005; J8597; Q0162

== ENCOUNTER 2019-03-28 10:04 | Emergency (ER) | payer MEDICARE, OTHER, SELFPAY ==
[2019-03-28 11:22] LABS: ALT (SGPT) 31 U/L (8-55); AST (SGOT) 67 U/L (5-34); Albumin 3.4 g/dL (3.5-5.0); Alkaline Phosphatase 168 U/L (40-110); Anion Gap 10 mmol/L (10-20); BUN (Urea Nitrogen) 10 mg/dL (9.8-20.1); Bilirubin, Total 3.3 mg/dL (0.2-1.2); Calc. Creatinine Clearance 0 mL/min (70-130); Calcium 9.6 mg/dL (7.8-10.44); Carbon Dioxide 27 mmol/L (22-29); Chloride 103 mmol/L (98-107); Estimated GFR-MDRD 75; Globulin 3.7 g/dL (2.4-3.5); Glucose 95 mg/dL (70-105); Lipase 45 U/L (8-78); Potassium 4.3 mmol/L (3.5-5.1); Protein, Total 7.1 g/dL (6.0-8.3); Sodium 136 mmol/L (136-145)
[2019-03-28 11:28] LABS: #Eosinphils 0.1 thou/uL (0.0-0.7); #Lymphocytes 0.6 thou/uL (1.20-3.40); #Monocytes 0.3 thou/uL (0.11-0.59); #Neutrophils 1.8 thou/uL (1.40-6.50); %Basophils 0.2 % (0.0-1.0); %Eosinophils 2.3 % (0.0-10.0); %Lymphocytes 22.3 % (21.0-51.0); %Monocytes 9.8 % (0.0-10.0); %Neutrophils 65.4 % (42.0-75.0); Hemoglobin 13.2 g/dL (12.0-16.0); MDiff Complete? YES; Macrocytosis MODERATE=16-30 cells (100X) (0-5/hpf); Mean Corpuscular HGB CONC 33.2 g/dL (32.0-36.0); Mean Corpuscular Hemoglobin 36.4 pg (27.0-31.0); Mean Platelet Volume 9.9 fL (7.4-10.4); Platelet Count 32 thou/uL (130-400); Platelet Morphology Comment Appears Decreased; Polychromasia SLIGHT = 2-3 cells (100X) (0-2/hpf); Red Blood Cell (RBC) Count 3.63 mill/uL (4.20-5.40); White Blood Cell (WBC) Count 2.7 thou/uL (4.8-10.8)
[2019-03-28] MEDS ORDERED: Metoclopramide HCl 10 MG/2 ML VIAL ONE (11:48)
[2019-03-28] MEDS ORDERED: Ketorolac Tromethamine 30 MG/ML VIAL ONE (11:48)
[2019-03-28] MEDS ORDERED: Metoclopramide 10 MG/10 ML UDCUP ONE (11:48)
[2019-03-28] MEDS ORDERED: diphenhydrAMINE 50 MG/ML VIAL ONE (11:48)
== END 2019-03-28 13:22 | disposition home or self-care (01) ==
LOC: ERS 10:04
DX: R10.9 Unspecified abdominal pain (principal); R51 Headache; I11.0 Hypertensive heart disease with heart failure; I50.9 Heart failure, unspecified; Z79.82 Long term (current) use of aspirin; Z79.899 Other long term (current) drug therapy
CPT/HCPCS: 80053; 82140; 83690; 85025; 94760; 96365; 96375; J1200; J1885; J2765

== ENCOUNTER 2019-08-02 06:46 | Outpatient (CLI) | payer MEDICARE, OTHER ==
[2019-08-03 12:08] LABS: SARS-CoV-2 MS2 Positive; SARS-CoV-2 N Gene Negative; SARS-CoV-2 S Gene Negative; SARS-CoV-2 orf1ab Negative
== END 2019-08-02 06:47 | disposition home or self-care (01) ==
LOC: LABBT 06:46
PROVIDERS: ATTEND Internal Medicine Gastroenterology
DX: Z01.812 Encounter for preprocedural laboratory examination (principal); Z11.59 Encounter for screening for other viral diseases
CPT/HCPCS: 87635; U0003

== ENCOUNTER 2019-08-06 08:46 | Day surgery (SDC) | payer MEDICARE, OTHER ==
[2019-08-01 14:39] VITALS: BMI 42.0
[2019-08-06] MEDS ORDERED: SUGAMMADEX SODIUM 200 MG/2 ML VIAL ONE (10:16)
[2019-08-06] MEDS ORDERED: Lidocaine 1% PF 5 ML VIAL ONE (11:31)
[2019-08-06] MEDS ORDERED: PROPOFOL 200 MG/20 ML VIAL ONE (11:31)
[2019-08-06] MEDS ORDERED: Rocuronium Bromide 10 MG/ML (10ML VIAL) ONE (11:31)
[2019-08-06] MEDS ORDERED: Acetaminophen 325 MG/10.15 ML UDCUP ONE ×2 (12:19→13:09)
[2019-08-06] MEDS ORDERED: Acetaminophen 325 MG/10.15 ML UDCUP PO PRN ×2 (12:55→12:56)
--- NOTE | 2019-08-06 13:00 | OP ---
DATE OF PROCEDURE: 08/06/2019 PREPROCEDURE DIAGNOSES: 1. Grade 3 varices. 2. Intolerance to beta-yvonne. 3. Primary prophylaxis banding. PROCEDURE PERFORMED: Esophagogastroduodenoscopy with banding of varices. RECOMMENDATIONS: Repeat EGD for possible repeat banding in 3 to 4 weeks. ANESTHESIA: General endotracheal anesthesia. PROCEDURE IN DETAIL: After the patient was informed of the risks, benefits, and possible complications of endoscopy including perforation, bleeding, reaction to medication, and aspiration, informed consent was obtained. The patient was brought to the endoscopy suite where she was sedated in a gradual fashion. Once she was comfortable and she was intubated and airway was secured, the endoscope was advanced through the esophagus, stomach, and second and third portions of the duodenum and was slowly removed. The esophagus was notable for 3 columns of grade 3 varices with red alberto signs and no active bleeding. The stomach was entered and found to be normal with no evidence of gastric varices, but [id number] portal hypertensive gastropathy in the body and antrum. Again, retroflexed view showed no evidence of gastric varices. The duodenum was normal in 3rd portion. The scope was then removed. A 7 Band Ligator kit was applied and the scope was then reintroduced into the distal esophagus, starting in GE junction 30 cm, 6 bands were applied between 30 and 25 cm in the incisural orifice. The scope was removed. The patient tolerated the procedure well. There were no complications. Job ID: [id number]
[2019-08-06 13:22] LABS: #Eosinphils 0.1 thou/uL (0.0-0.7); #Lymphocytes 0.5 thou/uL (1.20-3.40); #Monocytes 0.3 thou/uL (0.11-0.59); #Neutrophils 3.2 thou/uL (1.40-6.50); %Basophils 0.2 % (0.0-1.0); %Eosinophils 2.3 % (0.0-10.0); %Lymphocytes 12.1 % (21.0-51.0); %Neutrophils 79.4 % (42.0-75.0); Hemoglobin 12.6 g/dL (12.0-16.0); Mean Corpuscular HGB CONC 33.2 g/dL (32.0-36.0); Mean Corpuscular Hemoglobin 35.9 pg (27.0-31.0); Mean Platelet Volume 10.5 fL (7.4-10.4); Platelet Count 40 thou/uL (130-400); RBC Distribution Width 16.2 % (11.5-14.5); White Blood Cell (WBC) Count 4.1 thou/uL (4.8-10.8)
[2019-08-06 13:42] LABS: ALT (SGPT) 37 U/L (8-55); AST (SGOT) 106 U/L (5-34); Albumin 2.9 g/dL (3.5-5.0); Alkaline Phosphatase 154 U/L (40-110); Anion Gap 12 mmol/L (10-20); BUN (Urea Nitrogen) 9 mg/dL (9.8-20.1); Bilirubin, Total 5.5 mg/dL (0.2-1.2); Calc. Creatinine Clearance 145 mL/min (70-130); Calcium 8.2 mg/dL (7.8-10.44); Carbon Dioxide 20 mmol/L (22-29); Chloride 102 mmol/L (98-107); Estimated GFR-MDRD 87; Globulin 3.7 g/dL (2.4-3.5); Glucose 85 mg/dL (70-105); Potassium 4.6 mmol/L (3.5-5.1); Protein, Total 6.6 g/dL (6.0-8.3); Sodium 129 mmol/L (136-145)
[2019-08-06 13:49] LABS: Anisocytosis SLIGHT = 6-15 cells (100X) (0-5/hpf); MDiff Complete? YES; Macrocytosis SLIGHT = 6-15 cells (100X) (0-5/hpf); Platelet Morphology Comment Appears Decreased; Polychromasia SLIGHT = 2-3 cells (100X) (0-2/hpf)
== END 2019-08-06 14:44 | disposition home or self-care (01) ==
LOC: SDC 08:46
PROVIDERS: ATTEND Internal Medicine Gastroenterology
PROC: 06L38CZ Occlusion of Esophageal Vein with Extraluminal Device, Via Natural or Artificial Opening Endoscopic (ICD-10-PCS; principal; 2019-08-06)
DX: K74.60 Unspecified cirrhosis of liver (principal); I85.10 Secondary esophageal varices without bleeding; K76.6 Portal hypertension; K31.89 Other diseases of stomach and duodenum; K72.90 Hepatic failure, unspecified without coma; G93.41 Metabolic encephalopathy; I11.0 Hypertensive heart disease with heart failure; I50.30 Unspecified diastolic (congestive) heart failure; Z86.73 Personal history of transient ischemic attack (TIA), and cerebral infarction without residual deficits; Z79.899 Other long term (current) drug therapy
CPT/HCPCS: 36415; 80053; 82140; 85025; J2001; J2704

== ENCOUNTER 2019-08-22 06:54 | Outpatient (CLI) | payer MEDICARE, OTHER ==
[2019-08-23 13:22] LABS: SARS-CoV-2 MS2 Positive; SARS-CoV-2 N Gene Negative; SARS-CoV-2 S Gene Negative; SARS-CoV-2 orf1ab Negative
== END 2019-08-22 06:55 | disposition home or self-care (01) ==
LOC: LABBT 06:54
PROVIDERS: ATTEND Internal Medicine Gastroenterology
DX: Z01.812 Encounter for preprocedural laboratory examination (principal); Z11.59 Encounter for screening for other viral diseases; K74.60 Unspecified cirrhosis of liver; I85.00 Esophageal varices without bleeding
CPT/HCPCS: 87635; U0003

== ENCOUNTER 2019-08-27 07:50 | Day surgery (SDC) | payer MEDICARE, OTHER ==
[2019-08-20 12:48] VITALS: BMI 42.4
[2019-08-27] MEDS ORDERED: PROPOFOL 200 MG/20 ML VIAL ONE (11:17)
--- NOTE | 2019-08-27 11:27 | OP ---
DATE OF PROCEDURE: 08/27/2019 PREPROCEDURE DIAGNOSES: 1. Cirrhosis. 2. History of varices, red alberto sign, prophylactically banded for primary prophylaxis of esophageal varices bleeding on 08/06/2019. POSTPROCEDURE DIAGNOSES: 1. Mild portal hypertensive gastropathy. 2. Mild heme staining in gastric mucosa. 3. One remaining varix in the distal esophagus, grade 2, banded, good effect. 4. Normal duodenum. RECOMMENDATIONS: 1. Continue PPI therapy. 2. Repeat EGD in 6 months to a year. Follow up in the office in 3 months. ANESTHESIA: TIVA. DESCRIPTION OF PROCEDURE: The patient was informed of the risks, benefits, and possible complications of endoscopy including perforation, bleeding, reaction to medication, aspiration, informed consent was obtained. The patient was brought to the endoscopy suite, where she was sedated in gradual fashion. Once she was comfortable, a bite block was placed in the incisural orifice. The endoscope was advanced into the esophagus, stomach, and second and third portions of the duodenum and slowly removed. There was good visualization of the mucosa. There were multiple scars noted in the esophagus from the heavy banding that was performed on the 05 of August. There were no ulcers. There was one varix in the distal esophagus, it was banded and no other varices could be found to band. The stomach showed mild portal hypertensive gastropathy, unchanged from previous procedure. There was mild heme staining in the gastric mucosa, unchanged from her previous procedure. The duodenum was normal to third portion. The scope was removed. The patient tolerated the procedure well. There were no complications. Job ID: [id number]
== END 2019-08-27 11:17 | disposition home or self-care (01) ==
LOC: SDC 07:50
PROVIDERS: ATTEND Internal Medicine Gastroenterology
PROC: 06L38CZ Occlusion of Esophageal Vein with Extraluminal Device, Via Natural or Artificial Opening Endoscopic (ICD-10-PCS; principal; 2019-08-27)
DX: K76.6 Portal hypertension (principal); K31.89 Other diseases of stomach and duodenum; K74.60 Unspecified cirrhosis of liver; I85.10 Secondary esophageal varices without bleeding; K72.90 Hepatic failure, unspecified without coma; I11.0 Hypertensive heart disease with heart failure; I50.30 Unspecified diastolic (congestive) heart failure; Z86.73 Personal history of transient ischemic attack (TIA), and cerebral infarction without residual deficits; Z79.899 Other long term (current) drug therapy

== ENCOUNTER 2020-03-29 14:37 | Inpatient (IN) | payer MEDICARE, OTHER ==
--- NOTE | 2020-03-29 15:17 | RAD ---
XR Chest 1 View Portable History: Wheezing Comparison: Radiograph August 2018 Findings: Moderate layering pleural effusion. Heart size upper limits of normal. No pneumothorax. No airspace consolidation the left lung. Impression: New moderate-large right layering pleural effusion. Underlying mass cannot be totally exc luded. Nonemergent follow-up CT the chest recommended after drainage of pleural fluid.
[2020-03-29 15:29] LABS: #Eosinphils 0.1 thou/uL (0.0-0.7); #Lymphocytes 0.5 thou/uL (1.20-3.40); #Monocytes 0.4 thou/uL (0.11-0.59); %Basophils 0.4 % (0.0-1.0); %Eosinophils 3.5 % (0.0-10.0); %Lymphocytes 12.7 % (21.0-51.0); %Neutrophils 74.4 % (42.0-75.0); Hemoglobin 13.1 g/dL (12.0-16.0); Mean Corpuscular HGB CONC 33.2 g/dL (32.0-36.0); Mean Corpuscular Hemoglobin 36.4 pg (27.0-31.0); Mean Platelet Volume 10.3 fL (7.4-10.4); Platelet Count 36 thou/uL (130-400); RBC Distribution Width 16.2 % (11.5-14.5); Red Blood Cell (RBC) Count 3.59 mill/uL (4.20-5.40)
[2020-03-29 15:48] LABS: ALT (SGPT) 42 U/L (8-55); AST (SGOT) 106 U/L (5-34); Albumin 2.7 g/dL (3.5-5.0); Alkaline Phosphatase 184 U/L (40-110); Anion Gap 11 mmol/L (10-20); Anisocytosis SLIGHT = 6-15 cells (100X) (0-5/hpf); BUN (Urea Nitrogen) 11 mg/dL (9.8-20.1); Bilirubin, Total 5.7 mg/dL (0.2-1.2); Calc. Creatinine Clearance 0 mL/min (70-130); Calcium 7.7 mg/dL (7.8-10.44); Carbon Dioxide 24 mmol/L (22-29); Chloride 106 mmol/L (98-107); Globulin 4.1 g/dL (2.4-3.5); Glucose 120 mg/dL (70-105); MDiff Complete? YES; Macrocytosis SLIGHT = 6-15 cells (100X) (0-5/hpf); Platelet Morphology Comment Appears Decreased; Polychromasia SLIGHT = 2-3 cells (100X) (0-2/hpf); Potassium 4.6 mmol/L (3.5-5.1); Protein, Total 6.8 g/dL (6.0-8.3); Sodium 136 mmol/L (136-145)
[2020-03-29 16:10] LABS: PTT 42.1 sec (22.9-36.1); Prothrombin Time 23.5 sec (12.0-14.7)
[2020-03-29] MEDS ORDERED: Ondansetron ODT 4 MG TAB PO PRN (18:11)
[2020-03-29] MEDS ORDERED: Senokot S 8.6-50 MG TAB PO PRN (18:11)
--- NOTE | 2020-03-29 19:09 | HP ---
PRIMARY CARE PHYSICIAN: Griffin Zacarias MD INDUSTRY OPERATIONS INVESTIGATOR: Jules Kiran MD The patient also has a cirrhosis specialist at [facility] in [place]. CHIEF COMPLAINT: Wheezing. HISTORY OF PRESENT ILLNESS: Ms. Palma is a 59-year-old female with a past medical history of cirrhosis and congestive heart failure, whose sister brought her in because she has been worried about her wheezing for the last 2 or 3 weeks. The patient denies any shortness of breath. She does endorse more swelling in legs, abdomen, and does report harder to breathe when she lies flat. The patient has known cirrhosis and is on the liver transplant list at [facility]. ER evaluation demonstrated an ammonia level of 81, a BNP of 62, and troponin negative. INR is 2. She is thrombocytopenic with a platelet count of 36. White blood cell count is 4, red blood cell count is 3.59, hemoglobin 13.1, and hematocrit is 39.4. Chemistry is unremarkable except for the glucose which is 120, calcium is 7.7, albumin 2.7, alkaline phosphatase 184, AST 106, ALT 42. Chest x-ray shows a new moderate to large right layering pleural effusion. Underlying mass cannot be excluded. Radiology recommends a CT scan once the fluid has receded. Dr. Saenz in the emergency room talked to Dr. Kiran, who recommended admission, Lasix for diuresis and that he would see her in the morning. So, she will be admitted to the medical unit for further management. REVIEW OF SYSTEMS: The patient reports wheezing, reports slightly increased shortness of breath, reports increased swelling to abdomen and legs. Denies abdominal pain. Denies any nausea, vomiting, or diarrhea. Denies fever. Denies cough. Systems are reviewed and negative unless mentioned above. PAST MEDICAL HISTORY: CHF, liver cirrhosis. She is on the transplant list. PAST SURGICAL HISTORY: Pituitary tumor removal, cholecystectomy. PSYCHIATRIC HISTORY: None. SOCIAL HISTORY: Denies any alcohol or drug use. No smoking history. KNOWN ALLERGIES: None. CURRENT MEDICATIONS: 1. Furosemide 20 mg p.o. once a day. 2. Spironolactone 25 mg p.o. once a day. 3. Xifaxan 550 mg p.o. once a day. 4. Zofran 4 mg q.6 hours as needed. 5. Lactulose 10 g t.i.d. p.rgrecia PHYSICAL EXAMINATION: VITAL SIGNS: Blood pressure is 123/58, pulse is 61, respiratory rate is 24, temperature is 97.8, pO2 saturations are 100% on room air. CONSTITUTIONAL: The patient appears nontoxic. She is alert and oriented to person, place, and time. She is in no apparent distress. HEAD: Atraumatic and normocephalic. EYES: Pupils are equally round and reactive to light. EARS, NOSE, AND THROAT: Mouth exam is normal. Mucous membranes are moist. NECK: Normal range of motion. Trachea is midline. RESPIRATORY: She has some diffuse wheezing. She has decreased breath sounds on the right. ASSESSMENT AND PLAN: 1. Large pleural effusion and fluid overload. Lasix has been ordered in the emergency room. We will continue this b.i.d. There is no echocardiogram in the chart since 2018, so we will order routine echocardiogram. Dr. Kiran has been consulted and we would appreciate his recommendations. We will continue her lactulose. Check an ammonia level in the morning. If Lasix does not improve the pleural effusion, thoracentesis may be warranted. 2. History of cirrhosis. Please see #1. We will continue her home medications once reconciled. 3. Thrombocytopenia. This appears at baseline. We will get a CBC in the morning. 4. Case was discussed with Dr. Esposito. 5. Hospital course dependent on clinical findings. Job ID: [id number]
[2020-03-29 19:44] LABS: Phosphorus 2.4 mg/dL (2.3-4.7)
[2020-03-29] MEDS ORDERED: Furosemide 40 MG/4 ML VIAL ONE (19:47)
[2020-03-29] MEDS ORDERED: Acetaminophen 325 MG TAB PO PRN (21:15)
[2020-03-29] MEDS: Famotidine 20 MG TAB PO SCH (22:00)
[2020-03-30 05:39] LABS: #Eosinphils 0.1 thou/uL (0.0-0.7); #Lymphocytes 0.5 thou/uL (1.20-3.40); #Monocytes 0.4 thou/uL (0.11-0.59); #Neutrophils 2.3 thou/uL (1.40-6.50); %Basophils 0.5 % (0.0-1.0); %Eosinophils 2.7 % (0.0-10.0); %Lymphocytes 15.1 % (21.0-51.0); %Monocytes 11.5 % (0.0-10.0); %Neutrophils 70.2 % (42.0-75.0); Hemoglobin 11.4 g/dL (12.0-16.0); Mean Corpuscular HGB CONC 32.6 g/dL (32.0-36.0); Mean Corpuscular Hemoglobin 35.8 pg (27.0-31.0); Mean Platelet Volume 10.4 fL (7.4-10.4); Platelet Count 31 thou/uL (130-400); RBC Distribution Width 16.2 % (11.5-14.5); Red Blood Cell (RBC) Count 3.18 mill/uL (4.20-5.40); White Blood Cell (WBC) Count 3.3 thou/uL (4.8-10.8)
[2020-03-30 05:58] LABS: ALT (SGPT) 32 U/L (8-55); AST (SGOT) 83 U/L (5-34); Albumin 2.2 g/dL (3.5-5.0); Alkaline Phosphatase 129 U/L (40-110); Anion Gap 8 mmol/L (10-20); BUN (Urea Nitrogen) 9 mg/dL (9.8-20.1); Bilirubin, Total 5.1 mg/dL (0.2-1.2); Calc. Creatinine Clearance 135 mL/min (70-130); Calcium 7.5 mg/dL (7.8-10.44); Carbon Dioxide 25 mmol/L (22-29); Chloride 104 mmol/L (98-107); Globulin 3.5 g/dL (2.4-3.5); Glucose 78 mg/dL (70-105); Potassium 4.2 mmol/L (3.5-5.1); Protein, Total 5.7 g/dL (6.0-8.3); Sodium 133 mmol/L (136-145)
[2020-03-30] MEDS: Furosemide 40 MG/4 ML VIAL SLOW IVP SCH ×2 (05:58→13:48)
[2020-03-30 06:27] LABS: SARS-CoV-2 PCR by NAA Not Detected (NotDetected)
[2020-03-30] MEDS: Famotidine 20 MG TAB PO SCH (10:20)
--- NOTE | 2020-03-30 10:48 | PDOC.HOSPP ---
- Subjective Encounter Date: 03/30/20 Encounter Time: 10:46 Subjective: Patient laying in bed, slightly raised to help breathing. States if she lies flat, she has a hard time breathing. Sister is at bedside and states patient had a rough night but appears to be doing better this morning. - Objective Vital Signs & Weight: Vital Signs (12 hours) Temp Pulse Resp BP BP Pulse Ox 03/30/20 08:00 97.7 F 69 20 113/74 96 03/30/20 04:00 97.8 F 62 20 101/63 97 03/30/20 00:00 97.7 F 72 18 111/79 98 Weight Weight 230 lb 3.36 oz I&O: 03/29/20 03/30/20 03/31/20 06:59 06:59 06:59 Intake Total 260 Output Total 450 Balance -190 Result Diagrams: 03/30/20 05:11 03/30/20 05:11 Hospitalist ROS - Review of Systems Constitutional: denies: fever, chills, sweats Eyes: denies: pain, vision change, conjunctivae inflammation, eyelid inflammation, redness ENT: denies: ear pain, ear discharge, nose pain, nose discharge, nose congestion, mouth pain, mouth swelling, throat pain, throat swelling Respiratory: reports: shortness of breath, wheezing. denies: cough, dry, hemoptysis, sputum Cardiovascular: denies: chest pain, palpitations, orthopnea, paroxysmal noc. dyspnea, edema, light headedness Gastrointestinal: reports: other (swelling to abdomen and BLE). denies: nausea, vomiting, abdominal pain, diarrhea, constipation Genitourinary: denies: dysuria, frequency, incontinence, hematuria, retention Musculoskeletal: denies: neck pain, shoulder pain, arm pain, back pain, hand pain, leg pain, foot pain Skin: denies: rash, lesions, dillon, bruising Neurological: denies: weakness, numbness, incoordination, change in speech, confusion, seizures All other systems reviewed; all pertinent +/- noted in HPI/Subj - Medication Medications: Active Medications Generic Name Dose Route Start Last Admin Trade Name Freq PRN Reason Stop Dose Admin Famotidine 20 mg 03/29/20 21:00 03/30/20 10:20 Famotidine 20 Mg Tab PO 20 mg BID JAMIN Administration Furosemide 40 mg 03/30/20 06:00 03/30/20 05:58 Furosemide 40 Mg/4 Ml Vial SLOW IVP 40 mg 0600,1400 JAMIN Administration Lactulose 20 gm 03/29/20 21:00 03/30/20 10:20 Lactulose 20 Gm/30 Ml Udcup PO 20 gm TID JAMIN Administration Hospitalist Exam Vitals: Vital Signs (12 hours) Temp Pulse Resp BP BP Pulse Ox 03/30/20 08:00 97.7 F 69 20 113/74 96 03/30/20 04:00 97.8 F 62 20 101/63 97 03/30/20 00:00 97.7 F 72 18 111/79 98 Weight Weight 230 lb 3.36 oz General Appearance: NAD Eye: PERRL ENT: normocephalic atraumatic, moist mucosa Neck: supple, symmetric, no lymphadenopathy Heart: RRR, normal peripheral pulses Respiratory: normal chest expansion, wheezes (diffusly) Gastrointestinal: normal bowel sounds, distended Extremities: 1+ LE edema (BLE) Skin: normal turgor, no rashes Neurological: normal sensation to touch Musculoskeletal: normal tone Psychiatric: normal affect, normal behavior, A&O x 3 Hosp A/P (1) Pleural effusion Code(s): J90 - PLEURAL EFFUSION, NOT ELSEWHERE CLASSIFIED Status: Acute (2) Cirrhosis Code(s): K74.60 - UNSPECIFIED CIRRHOSIS OF LIVER Status: Acute (3) Thrombocytopenia Code(s): D69.6 - THROMBOCYTOPENIA, UNSPECIFIED Status: Acute (4) Generalized edema Code(s): R60.1 - GENERALIZED EDEMA Status: Acute - Plan old records reviewed/req, plan discussed w/ family, DVT proph w/SCDs Plan: 59 year old female with history of liver cirrhosis and is on the liver myers splant list. She is managed by GI at [facility] in [place]. History of pleural effusion with fluid overload, thrombocytopenia. Pleural effusion -Lasix BID, possible thoracentesis if no improvement with Lasix. -ECHO ordered, completed morning of 03/30/20. Cirrhosis -GI Consult - Dr. Kiran saw on 03/30/20 -Lactulose and Xifaxan dosage increased by Dr. Kiran. -Ammonia level on admission was 81, Ammonia this morning on 03/30/20 was 106. -Resume home medications once reconciled. -Abdominal US ordered. Thrombocytopenia -This appears to be baseline, admission platelets were 36, repeat lab draw was 31. Generalized edema -Lasix BID, possible thoracentesis if no improvement with Lasix. -ECHO ordered, completed morning of 03/30/20.
[2020-03-30] MEDS ORDERED: Spironolactone 100 MG TAB PO SCH (12:30)
--- NOTE | 2020-03-30 13:01 | CON ---
DATE OF CONSULTATION: 03/30/2020 REASON FOR CONSULT: New pleural effusion, history of cirrhosis. HISTORY OF PRESENT ILLNESS: Ms. 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 She did have mild elevation of smooth muscle antibody with a mild elevation of IgG at 1956, smooth muscle IgM of . In the past I did send her down to [place]. They considered liver biopsies she has been followed there for some time. She states she is on the transplant list and I am not sure if that is completely true. I have not received a letter from them about that, but she does follow there regularly as well. She has baseline issues with varices which she was banded prophylactically. The last was in November. She has had issues with encephalopathy and with fluid retention as well. Her daughter states that she has been having more wheezing in the past few weeks and more shortness of breath, so she decided to take her to the ER yesterday. There they found a new right-sided pleural effusion and decided to admit for observation. She has not been febrile. She has not had a cough. Her levels of confusion are not only different than baseline per the sister. Her sister does not live with her but goes and checks on her just about every day. Her compliance with medicines is felt to be fairly good, but they do not want her take all the medicines and home health can be there all the time. The patient denies any melena, hematochezia, or hematemesis. She thinks she is swollen more than usual. She denies any fever, chills. She denies any abdominal pain. Denies any cough. PAST MEDICAL HISTORY: 1. Cirrhosis, likely fatty liver, possibly undiagnosed component with autoimmune disease. 2. Diastolic congestive heart failure on echo couple of years ago. 3. History of TIA in 2013. 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 MEDICATIONS AT HOME: 1. Lasix 20 mg daily. 2. Spironolactone 50 mg daily. 3. Xifaxan 550 t.i.d. 4. Lactulose which she takes on a regular basis. 5. Zofran p.r.n. SOCIAL HISTORY: She lives alone but does have home health and her sister checks on her frequently. She does not use any drugs or alcohol. She does not smoke at this time. ALLERGIES: NONE. FAMILY HISTORY: No liver disease. PHYSICAL EXAMINATION: GENERAL: She is resting in bed. She is pretty focused on watching TV. She does not really know the day. She knows who I am. She knows who her sister is and she knows who she is. She knows she is at [facility]. VITAL SIGNS: She has been afebrile since admission, temperature 97.8, pulse 65, blood pressure 117/71. NECK: Supple without adenopathy. There is no overt JVD. LUNGS: Clear with decreased breath sounds in the right base. HEART: Regular rate and rhythm. ABDOMEN: Protuberant, a little bit more swollen than usual with a little bit of dullness to percussion. No palpable hepatosplenomegaly. EXTREMITIES: No clubbing or cyanosis. She does have edema. NEUROLOGIC: She has mild asterixis. LABORATORY DATA: White count 3.3, it was 4 yesterday; hemoglobin 11.4, 13.1 yesterday; MCV 100; platelet count 31,000, normal differential. INR 2. Sodium 133, it is about her baseline. Potassium 4.2, BUN and creatinine are 9 and 0.7. Bilirubin is 5.1, it is up from 2 in 2018. AST is 83, ALT is 32, alkaline phosphatase is 129; these are stable. Protein is 5.7, albumin is 2.2, ammonia is 106 today. Chest x-ray shows moderate right large layering effusion, new. ASSESSMENT: 1. Cirrhosis, fatty liver versus possible low-grade autoimmune disease. Stable function with INR of 2. Mild encephalopathy and portal hypertension issues in the past. 2. She has had increased fluid retention. She shows no overt signs of infection. She may have some ascites. She does have a new right-sided effusion as well. She states she has been compliant with medicines at home. 3. Right pleural effusion. This could be from hepatic hydrothorax or heart, less likely to be infection or malignancy. 4. History of varices. No evidence of bleeding at this time. Significant hepatic encephalopathy, worse than baseline. RECOMMENDATIONS: 1. We will get an ultrasound of her abdomen to make sure she does not have ascites. If there is tappable fluid, she needs a paracentesis to rule out SBP. 2. Agree with aggressive diuresis. 3. We will increase Xifaxan and lactulose. Follow electrolytes closely. We will follow along with you. Job ID: [id number]
[2020-03-30 16:02] LABS: Bilirubin Negative (Negative); Blood, Urine 1+ (Negative); Clarity Turbid (Clear); Glucose, Urine (Dipstick) Normal (Negative); Ketone, Urine Negative (Negative); Leukocyte 25 Leu/uL (Negative); Nitrite Negative (Negative); Protein, Urine (Dipstick) Negative (Neg-Trace); Specific Gravity, Urine 1.006 (1.002-1.036); Squamous Epithelial 0-3 HPF (0-3); Urobilinogen Normal mg/dL (Less than 2)
[2020-03-30 16:03] LABS: Bacteria/HPF 3+ HPF (None Seen)
[2020-03-30 16:04] LABS: Urine Culture Reflex Yes Yes
[2020-03-30] MEDS: Rifaximin 550 MG TAB PO SCH (21:07)
[2020-03-31] MEDS: Furosemide 40 MG/4 ML VIAL SLOW IVP SCH ×2 (05:19→14:05)
[2020-03-31] MEDS ORDERED: Spironolactone 100 MG TAB PO SCH (08:00)
[2020-03-31] MEDS: Rifaximin 550 MG TAB PO SCH (08:14)
--- NOTE | 2020-03-31 11:00 | ULT ---
US Abdomen Limited: 03/31/2020 10:00 AM CLINICAL HISTORY: Evaluate ascites. STUDY: Limited 4 quadrant ultrasound of abdomen. COMPARISON: 06/03/2017 FINDINGS: No significant fluid is seen in any of the 4 quadrants of the abdomen. IMPRESSION: No significant ascites.
--- NOTE | 2020-03-31 11:30 | PRG ---
DATE OF SERVICE: 03/31/2020 SUBJECTIVE: Ms. Palma feels better. She is more alert. Her daughter feels that she is doing much better. She has had good bowel movements on lactulose. OBJECTIVE: VITAL SINGS: Temperature is 97.0, pulse rate 67, blood pressure 139/78. In's and out's were not really recorded, but her weight is documented down to 5 pounds from admission. She seems much more alert and bright-eyed, not slurring her speech. LUNGS: Clear on both sides. HEART: Regular rate and rhythm. ABDOMEN: Soft and nontender. EXTREMITIES: edema. DIAGNOSTIC STUDIES: Ultrasound today showed no tappable ascites. Labs not performed. ASSESSMENT: 1. Encephalopathy due to noncompliance of medication, improved with increased dosing here. 2. Fluid overload. Her echocardiogram is stable from a few years ago. I suspect this is just fluid retention related to her cirrhosis. Her hepatic function has been about the same as it has been in the outpatient setting, she has had recent hepatoma screening which was negative. She showed no signs of GI hemorrhage and she is responding to diuresis. RECOMMENDATIONS: I will recheck a BMP today and make sure she is tolerating the increased dose of diuretics. Check a PA and lateral chest x-ray. If the effusion is improving, I think she can go home on a higher dose of Lasix at increasing it from 20 mg once a day to 40 mg once a day and increasing her Aldactone from 50 mg once a day to 100 mg once a day and to follow up in the office with us in a week to recheck her renal function. I was stressed with her and her daughter the need for her to take her lactulose and Xifaxan. If her chest x-ray shows the effusion to not be improving or worsening, then it may be good to have Pulmonary take a look at it and tap it, but I think this is probably hepatic hydrothorax. Job ID: [id number]
--- NOTE | 2020-03-31 12:19 | RAD ---
EXAM: Two views chest PROVIDED CLINICAL HISTORY: Follow-up pleural effusion after diuresis. COMPARISON: 03/29/2020 FINDINGS: Cardiac silhouette and pulmonary vasculature are within normal limits. There has been interval impro vement in right pleural effusion with suggestion of minimal right pleural effusion on current exam. Lungs are otherwise clear. No other interval change. IMPRESSION: Interval improvement in right pleural effusion with minimal pleural fluid posterior right costophreni c angle..
[2020-03-31 12:30] LABS: Anion Gap 9 mmol/L (10-20); BUN (Urea Nitrogen) 13 mg/dL (9.8-20.1); Calc. Creatinine Clearance 119 mL/min (70-130); Calcium 8.3 mg/dL (7.8-10.44); Carbon Dioxide 29 mmol/L (22-29); Chloride 102 mmol/L (98-107); Glucose 174 mg/dL (70-105); Potassium 4.1 mmol/L (3.5-5.1); Sodium 136 mmol/L (136-145)
--- NOTE | 2020-03-31 13:48 | PDOC.DS.DS ---
Provider Date of Admission: 03/31/20 12:35 Date of Discharge: 03/31/20 Admitting Provider: Lucio Godwin MD Consultations: Gastroentrology (Dr. Kiran) Primary Care Physician: Griffin Zacarisa Course Hospital Course: Discharge diagnosis: 1. Right-sided pleural effusion 2. Pleural effusion secondary to cirrhosis 3. Hepatic encephalopathy 4. Urinary tract infection 5. Hyponatremia 6. Hypoalbuminemia 7. COVID-19 test negative Hospital course: Patient is a pleasant 59-year-old lady who was admitted to the hospital on March 29, 2020 for large right-sided pleural effusion and fluid overload. This is in the context of past history of cirrhosis. 2D echocardiogram showed left ventricle ejection fraction of 55 to 60%, mild concentric left ventricular hypertrophy, E/a flow reversal suggestive of diastolic dysfunction, mild mitral regurgitation and mild tricuspid regurgitation. Patient was also found to have an elevated ammonia level. Her lactulose dose was increased. Her furosemide and spironolactone doses were also increased. Follow-up chest x-ray showed significant improvement in the pleural effusion. She is being discharged home in a stable condition. She was also found to have urinary tract infection. At the time of this dictation, urine culture is growing gram-negative isaiah. She is advised to follow-up with primary care provider for final urine culture report. Many thanks for allowing me to participate in your patient's care. Please feel free to contact me with any questions or concerns. Discharge destination: Home Total amount of time spent coordinating this discharge: 25 minutes Resuscitation Status: 03/29/20 18:11 Resuscitation Status Routine Co-Sign Provider: Resuscitation Status: FULL: Full Resuscitation Discussed with: patient Additional comments: sister is FELICIA Lab Results: 03/30/20 05:11 03/31/20 11:45 Abnormal Lab Results - Last 48 hrs 03/29/20 15:11: Calcium 7.7 L, Total Bilirubin 5.7 H, AST 106 H, Alkaline Phosphatase 184 H, Albumin 2.7 L, Globulin 4.1 H, Albumin/Globulin Ratio 0.7 L 03/29/20 15:11: WBC 4.0 L, RBC 3.59 L, MCV 110.0 H, MCH 36.4 H, RDW 16.2 H, Plt Count 36 L, Lymphocytes % 12.7 L, Lymphocytes # 0.5 L, Plt Morphology Comment Appears Decreased L 03/29/20 15:49: PT 23.5 H, APTT 42.1 H 03/29/20 17:00: Ammonia 81 H 03/30/20 05:11: Sodium 133 L, Anion Gap 8 L, BUN 9 L, Calcium 7.5 L, Total Bilirubin 5.1 H, AST 83 H, Alkaline Phosphatase 129 H, Serum Total Protein 5.7 L, Albumin 2.2 L, Albumin/Globulin Ratio 0.6 L 03/30/20 05:11: WBC 3.3 L, RBC 3.18 L, Hgb 11.4 L, Hct 34.9 L, MCV 110.0 H, MCH 35.8 H, RDW 16.2 H, Plt Count 31 L, Lymphocytes % 15.1 L, Monocytes % 11.5 H, Lymphocytes # 0.5 L 03/30/20 05:11: Ammonia 106 H 03/30/20 15:12: Urine Clarity Turbid A, Urine Blood 1+ A, Ur Leukocyte Esterase 25 A, Urine RBC 4-6 A, Urine WBC 4-6 A, Urine Bacteria 3+ A, Urine Culture Reflexed Yes A 03/31/20 11:45: Anion Gap 9 L Microbiology - Entire Visit 03/30/20 16:30 Urine clean catch Urine Culture - Preliminary Gram Negative Isaiah Vitals: Vital Signs (12 hours) Temp Pulse Resp BP BP BP Pulse Ox 03/31/20 12:57 99 03/31/20 12:05 97.7 F 67 18 121/72 96 03/31/20 08:00 97.7 F 67 20 139/78 99 03/31/20 07:35 97.7 F 67 20 139/78 99 03/31/20 05:04 97.6 F 68 18 135/70 98 Weight Weight 225 lb 1.6 oz Physical Exam: The patient was seen and examined on the day of discharge. Patient denies chest pain or shortness of breath. Vital signs are stable. S1 and S2 are heard. Lungs are clear to auscultation bilaterally. Plan Prescriptions: Lactulose 20 gm PO Q4HR #180 udcup Furosemide [Lasix] 40 mg PO DAILY-AC #30 tab Levofloxacin [Levaquin] 500 mg PO 0600 #5 tab Spironolactone 100 mg PO DAILY #30 tablet Home Medications: Medication Instructions Recorded Confirmed Type Rifaximin [Xifaxan] 550 mg PO DAILY 08/01/19 03/29/20 History Furosemide [Lasix] 40 mg PO DAILY-AC #30 tab 03/31/20 Rx Lactulose 20 gm PO Q4HR #180 udcup 03/31/20 Rx Levofloxacin [Levaquin] 500 mg PO 0600 #5 tab 03/31/20 Rx Ondansetron HCl [Zofran] 4 mg PO BID PRN #0 03/31/20 03/29/20 Rx Spironolactone 100 mg PO DAILY #30 tablet 03/31/20 Rx Allergies: No Known Allergies Allergy (Verified 08/20/19 12:45) Discharge Instructions:: Follow-up with your primary care provider for urine culture report. DO NOT USE ZOFRAN WHILE TAKING LEVOFLOXACIN Activity:: Activity as Tolerated Nourishment:: Low Sodium Diet Referrals: Griffin Zacarias MD [Primary Care Provider] - 3 Days Disposition: HOME Quality CORE MEASURES:: N/A
[2020-03-31 13:49] VITALS: BMI 43.9
[2020-03-31 16:45] VITALS: BP 120/54; TEMP 98.1
--- NOTE | 2020-04-02 02:32 | PQF ---
Dear : Clayton Lema Date 04/02/2020 Please exercise your independent, professional judgment in responding to the clarification form. Clinical indicators are provided on the bottom of this form for your review Can you please further clarify the specificity of Hepatic encephalopathy? Please check appropriate box(es): [ ] Acute Hepatic Encephalopathy [ x ] Chronic Hepatic Encephalopathy [ ] Other diagnosis please specify [ ] Unable to determine Physician Signature: Date/Time: For continuity of documentation, please document condition throughout progress notes and discharge summary. Thank You. To be completed by CDI/Coding staff for physician review: Present Clinical Indicators - Signs / Symptoms / Labs Results and Location in Medical Record [ x ] Ammonia level of 81 H and P pg.2 [ x ] Large pleural effusion and fluids overload H and P pg.2 [ x ] Significant hepatic encephalopathy, worse than baseline Consult pg.3 03/30 [ x ] Encephalopathy due to non compliance of medication PN pg.1 222 [ x ] Hepatic encephalopathy DS pg.1 [ x ] Hypoalbuminemia DS pg.1 [ x ] reports increased swelling to abdomen and legs HP 03/29 Present Risk Factors Results and Location in Medical Record [ x ] Cirrhosis H and P pg.1 [ x ] CHF H and P pg.1 Present Treatments Results and Location in Medical Record [ x ] IV Fluids MAR [ x ] Lasix 40mg IV MAR [ x ] Lactulose 30mg PO TID MAR [ x ] Spirolactone 100mg PO MAR [ x ] Xifaxan 500mg Oral MAR 03/30 CDS/Jingle Writer Signature: Shaheen Salgado Phone #: [phone] Date 04/02/2020 This is a permanent part of the Medical Record [facility]
== END 2020-03-31 16:46 | disposition home or self-care (01) | DRG 433 ==
LOC: ERS 14:37 → T4-B 17:45 → OBSVTOIN 03-31 12:35
PROVIDERS: ADMIT Internal Medicine; ATTEND Internal Medicine
DX: K74.60 Unspecified cirrhosis of liver (principal); J90 Pleural effusion, not elsewhere classified; I50.32 Chronic diastolic (congestive) heart failure; N39.0 Urinary tract infection, site not specified; E87.1 Hypo-osmolality and hyponatremia; Z20.822 Contact with and (suspected) exposure to COVID-19; D69.6 Thrombocytopenia, unspecified; K72.10 Chronic hepatic failure without coma; K76.0 Fatty (change of) liver, not elsewhere classified; E88.09 Other disorders of plasma-protein metabolism, not elsewhere classified; Z90.49 Acquired absence of other specified parts of digestive tract; Z79.899 Other long term (current) drug therapy; Z86.73 Personal history of transient ischemic attack (TIA), and cerebral infarction without residual deficits; Z91.14 Patient's other noncompliance with medication regimen
CPT/HCPCS: 36415; 71045; 71046; 76705; 80048; 80053; 81001; 82140; 83735; 83880; 84100; 84484; 85025; 85610; 85730; 87077; 87086; 87186; 87635; 93005; 93306; 96374; 96376; G0378; J1940; U0003; U0005

== ENCOUNTER 2020-07-19 13:23 | Inpatient (IN) | payer MEDICARE ==
[~2020-07-19 13:23] MED LIST changes: -ISOVUE-370 76%-LOCM 1 ML ONE; +Iopamidol-370 76% 500 ML 1 ML ONE
[2020-07-19 14:34] LABS: #Eosinphils 0.1 thou/uL (0.0-0.7); #Lymphocytes 0.6 thou/uL (1.20-3.40); #Monocytes 0.5 thou/uL (0.11-0.59); #Neutrophils 4.4 thou/uL (1.40-6.50); %Basophils 0.4 % (0.0-1.0); %Eosinophils 2.6 % (0.0-10.0); %Lymphocytes 10.9 % (21.0-51.0); %Neutrophils 77.1 % (42.0-75.0); Hemoglobin 12.3 g/dL (12.0-16.0); Mean Corpuscular HGB CONC 33.6 g/dL (32.0-36.0); Mean Corpuscular Hemoglobin 36.3 pg (27.0-31.0); Platelet Count 48 thou/uL (130-400); RBC Distribution Width 14.8 % (11.5-14.5); Red Blood Cell (RBC) Count 3.38 mill/uL (4.20-5.40); White Blood Cell (WBC) Count 5.8 thou/uL (4.8-10.8)
[2020-07-19 14:45] LABS: MDiff Complete? YES; Macrocytosis SLIGHT = 6-15 cells (100X) (0-5/hpf); Platelet Morphology Comment Appears Decreased; Polychromasia SLIGHT = 2-3 cells (100X) (0-2/hpf)
[2020-07-19 14:52] LABS: ALT (SGPT) 36 U/L (8-55); AST (SGOT) 96 U/L (5-34); Albumin 2.3 g/dL (3.5-5.0); Alkaline Phosphatase 165 U/L (40-110); Anion Gap 12 mmol/L (10-20); BUN (Urea Nitrogen) 7 mg/dL (9.8-20.1); Bilirubin, Total 6.9 mg/dL (0.2-1.2); Calc. Creatinine Clearance 0 mL/min (70-130); Calcium 7.9 mg/dL (7.8-10.44); Carbon Dioxide 21 mmol/L (22-29); Chloride 97 mmol/L (98-107); Globulin 4.3 g/dL (2.4-3.5); Glucose 123 mg/dL (70-105); Potassium 5.4 mmol/L (3.5-5.1); Protein, Total 6.6 g/dL (6.0-8.3); Sodium 125 mmol/L (136-145)
[2020-07-19 18:31] LABS: Bilirubin Moderate (Negative); Blood, Urine Small (Negative); Glucose, Urine (Dipstick) Negative (Negative); Ketone, Urine Trace mg/dL (Negative); Leukocyte Negative (Negative); Nitrite Negative (Negative); Protein, Urine (Dipstick) Negative (Neg-Trace); Specific Gravity, Urine 1.025 (1.005-1.030); Urobilinogen 0.2 mg/dL (Less than 2)
[2020-07-19 18:36] LABS: Clarity Clear (Clear)
[2020-07-19 18:37] LABS: Bacteria/HPF None Seen HPF (None Seen); Mucous/LPF Rare LPF (<2+); Squamous Epithelial 0-3 HPF (0-3); WBC/HPF 0-3 HPF (0-3)
[2020-07-19] MEDS ORDERED: cefTRIAXone\\ROCEPHIN 2 GM VIAL ONE (21:04)
[2020-07-19] MEDS ORDERED: Acetaminophen 650 MG Suppository PR PRN (22:00)
[2020-07-19 22:13] LABS: Anion Gap 12 mmol/L (10-20); BUN (Urea Nitrogen) 8 mg/dL (9.8-20.1); Calc. Creatinine Clearance 0 mL/min (70-130); Calcium 7.9 mg/dL (7.8-10.44); Carbon Dioxide 20 mmol/L (22-29); Chloride 97 mmol/L (98-107); Glucose 83 mg/dL (70-105); Potassium 5.2 mmol/L (3.5-5.1); Sodium 124 mmol/L (136-145)
[2020-07-19] MEDS ORDERED: Rifaximin 550 MG TAB PO SCH (23:00)
[2020-07-19 23:18] VITALS: BMI 41.1
[2020-07-20] MEDS: Albumin 25% 25 GM/100 ML BOT IVPB SCH ×4 (00:34→18:09)
[2020-07-20 00:39] LABS: INR-International Normal Ratio 2.7; Prothrombin Time 28.9 sec (12.0-14.7)
[2020-07-20 00:40] LABS: PTT 47.7 sec (22.9-36.1)
[2020-07-20] MEDS ORDERED: Furosemide 20 MG/2 ML VIAL ONE (01:44)
[2020-07-20] MEDS ORDERED: Furosemide 20 MG/2 ML VIAL SLOW IVP SCH (06:00)
[2020-07-20 07:20] LABS: Anion Gap 16 mmol/L (10-20); BUN (Urea Nitrogen) 9 mg/dL (9.8-20.1); Calc. Creatinine Clearance 113 mL/min (70-130); Calcium 7.7 mg/dL (7.8-10.44); Carbon Dioxide 18 mmol/L (22-29); Chloride 100 mmol/L (98-107); Glucose 78 mg/dL (70-105); Potassium 5.5 mmol/L (3.5-5.1); Sodium 128 mmol/L (136-145)
[2020-07-20 08:18] LABS: #Eosinphils 0.1 thou/uL (0.0-0.7); #Lymphocytes 0.7 thou/uL (1.20-3.40); #Monocytes 0.3 thou/uL (0.11-0.59); #Neutrophils 2.8 thou/uL (1.40-6.50); %Basophils 0.5 % (0.0-1.0); %Eosinophils 2.5 % (0.0-10.0); %Lymphocytes 16.8 % (21.0-51.0); %Monocytes 8.7 % (0.0-10.0); %Neutrophils 71.6 % (42.0-75.0); Hemoglobin 10.5 g/dL (12.0-16.0); Mean Corpuscular Hemoglobin 34.9 pg (27.0-31.0); Mean Platelet Volume 9.2 fL (7.4-10.4); Platelet Count 30 thou/uL (130-400); RBC Distribution Width 14.5 % (11.5-14.5); Red Blood Cell (RBC) Count 3.02 mill/uL (4.20-5.40)
[2020-07-20 08:27] LABS: SARS-CoV-2 NAA Rapid Test Not Detected (NotDetected)
[2020-07-20] MEDS ORDERED: Rifaximin 550 MG TAB PO SCH (09:00)
[2020-07-20] MEDS ORDERED: Enoxaparin Sodium 40 MG/0.4 ML SYRINGE SC SCH (09:00)
[2020-07-20] MEDS: Furosemide 40 MG/4 ML VIAL SLOW IVP SCH ×2 (09:11→22:06)
[2020-07-20 15:08] LABS: Anion Gap 16 mmol/L (10-20); BUN (Urea Nitrogen) 10 mg/dL (9.8-20.1); Calc. Creatinine Clearance 113 mL/min (70-130); Calcium 8.3 mg/dL (7.8-10.44); Carbon Dioxide 19 mmol/L (22-29); Chloride 101 mmol/L (98-107); Glucose 122 mg/dL (70-105); Potassium 5.2 mmol/L (3.5-5.1); Sodium 131 mmol/L (136-145)
[2020-07-20 16:08] LABS: Potassium 5.3 mmol/L (3.5-5.1)
[2020-07-20] MEDS: cefTRIAXone\\ROCEPHIN 2 GM in Sodium Chloride 0.9% 100 ML IVPB SCH (22:05)
[2020-07-20] MEDS: Rifaximin 550 MG TAB PO SCH (22:06)
[2020-07-21 04:45] LABS: #Eosinphils 0.1 thou/uL (0.0-0.7); #Lymphocytes 0.4 thou/uL (1.20-3.40); #Monocytes 0.2 thou/uL (0.11-0.59); #Neutrophils 1.5 thou/uL (1.40-6.50); %Basophils 0.3 % (0.0-1.0); %Eosinophils 3.5 % (0.0-10.0); %Lymphocytes 16.7 % (21.0-51.0); %Monocytes 10.4 % (0.0-10.0); %Neutrophils 69.2 % (42.0-75.0); Hemoglobin 9.5 g/dL (12.0-16.0); Mean Corpuscular HGB CONC 33.6 g/dL (32.0-36.0); Mean Corpuscular Hemoglobin 36.6 pg (27.0-31.0); Mean Platelet Volume 10.1 fL (7.4-10.4); Platelet Count 25 thou/uL (130-400); RBC Distribution Width 14.7 % (11.5-14.5); White Blood Cell (WBC) Count 2.1 thou/uL (4.8-10.8)
[2020-07-21 05:03] LABS: ALT (SGPT) 24 U/L (8-55); AST (SGOT) 58 U/L (5-34); Albumin 3.1 g/dL (3.5-5.0); Alkaline Phosphatase 95 U/L (40-110); Anion Gap 11 mmol/L (10-20); BUN (Urea Nitrogen) 11 mg/dL (9.8-20.1); Bilirubin, Total 5.1 mg/dL (0.2-1.2); Calc. Creatinine Clearance 110 mL/min (70-130); Calcium 8.2 mg/dL (7.8-10.44); Carbon Dioxide 24 mmol/L (22-29); Chloride 101 mmol/L (98-107); Globulin 2.6 g/dL (2.4-3.5); Glucose 72 mg/dL (70-105); Potassium 4.3 mmol/L (3.5-5.1); Protein, Total 5.7 g/dL (6.0-8.3); Sodium 132 mmol/L (136-145)
[2020-07-21] MEDS: Furosemide 40 MG/4 ML VIAL SLOW IVP SCH ×2 (07:55→21:45)
[2020-07-21] MEDS: Rifaximin 550 MG TAB PO SCH ×2 (07:55→21:44)
[2020-07-21] MEDS: cefTRIAXone\\ROCEPHIN 2 GM in Sodium Chloride 0.9% 100 ML IVPB SCH (21:44)
[2020-07-22 05:22] LABS: #Eosinphils 0.1 thou/uL (0.0-0.7); #Lymphocytes 0.5 thou/uL (1.20-3.40); #Monocytes 0.3 thou/uL (0.11-0.59); #Neutrophils 1.5 thou/uL (1.40-6.50); %Basophils 0.7 % (0.0-1.0); %Eosinophils 3.1 % (0.0-10.0); %Lymphocytes 20.1 % (21.0-51.0); %Monocytes 11.4 % (0.0-10.0); %Neutrophils 64.7 % (42.0-75.0); Mean Corpuscular HGB CONC 33.4 g/dL (32.0-36.0); Mean Corpuscular Hemoglobin 36.7 pg (27.0-31.0); Platelet Count 23 thou/uL (130-400); RBC Distribution Width 15.1 % (11.5-14.5); Red Blood Cell (RBC) Count 2.72 mill/uL (4.20-5.40); White Blood Cell (WBC) Count 2.4 thou/uL (4.8-10.8)
[2020-07-22 05:33] LABS: Phosphorus 2.9 mg/dL (2.3-4.7)
[2020-07-22 05:58] LABS: ALT (SGPT) 25 U/L (8-55); AST (SGOT) 65 U/L (5-34); Albumin 3.2 g/dL (3.5-5.0); Alkaline Phosphatase 110 U/L (40-110); Anion Gap 13 mmol/L (10-20); BUN (Urea Nitrogen) 12 mg/dL (9.8-20.1); Bilirubin, Total 4.9 mg/dL (0.2-1.2); Calc. Creatinine Clearance 107 mL/min (70-130); Calcium 8.3 mg/dL (7.8-10.44); Carbon Dioxide 24 mmol/L (22-29); Chloride 103 mmol/L (98-107); Globulin 2.8 g/dL (2.4-3.5); Glucose 77 mg/dL (70-105); Magnesium 1.8 mg/dL (1.6-2.6); Potassium 4.2 mmol/L (3.5-5.1); Sodium 136 mmol/L (136-145)
[2020-07-22] MEDS: Furosemide 40 MG/4 ML VIAL SLOW IVP SCH (08:08)
[2020-07-22] MEDS: Rifaximin 550 MG TAB PO SCH ×2 (08:09→21:50)
[2020-07-22] MEDS: cefTRIAXone\\ROCEPHIN 2 GM in Sodium Chloride 0.9% 100 ML IVPB SCH (21:50)
[2020-07-23 05:25] LABS: #Lymphocytes 0.4 thou/uL (1.20-3.40); #Monocytes 0.3 thou/uL (0.11-0.59); #Neutrophils 1.4 thou/uL (1.40-6.50); %Basophils 0.4 % (0.0-1.0); %Lymphocytes 17.8 % (21.0-51.0); %Monocytes 11.7 % (0.0-10.0); Hemoglobin 9.4 g/dL (12.0-16.0); Mean Corpuscular HGB CONC 33.1 g/dL (32.0-36.0); Mean Corpuscular Hemoglobin 36.3 pg (27.0-31.0); Mean Platelet Volume 9.5 fL (7.4-10.4); Platelet Count 27 thou/uL (130-400); RBC Distribution Width 15.2 % (11.5-14.5); White Blood Cell (WBC) Count 2.1 thou/uL (4.8-10.8)
[2020-07-23] MEDS: Rifaximin 550 MG TAB PO SCH ×2 (09:56→21:40)
[2020-07-23] MEDS: Furosemide 20 MG TAB PO SCH (09:56)
[2020-07-23] MEDS: cefTRIAXone\\ROCEPHIN 2 GM in Sodium Chloride 0.9% 100 ML IVPB SCH (21:39)
[2020-07-24 06:06] LABS: #Eosinphils 0.1 thou/uL (0.0-0.7); #Lymphocytes 0.5 thou/uL (1.20-3.40); #Monocytes 0.3 thou/uL (0.11-0.59); #Neutrophils 1.9 thou/uL (1.40-6.50); %Basophils 0.3 % (0.0-1.0); %Eosinophils 3.1 % (0.0-10.0); %Lymphocytes 16.4 % (21.0-51.0); %Monocytes 11.1 % (0.0-10.0); %Neutrophils 69.2 % (42.0-75.0); Hemoglobin 9.6 g/dL (12.0-16.0); Mean Corpuscular Hemoglobin 36.4 pg (27.0-31.0); Mean Platelet Volume 9.7 fL (7.4-10.4); Platelet Count 25 thou/uL (130-400); RBC Distribution Width 15.5 % (11.5-14.5); Red Blood Cell (RBC) Count 2.64 mill/uL (4.20-5.40); White Blood Cell (WBC) Count 2.7 thou/uL (4.8-10.8)
[2020-07-24] MEDS: Furosemide 20 MG TAB PO SCH (09:36)
[2020-07-24] MEDS: Rifaximin 550 MG TAB PO SCH ×2 (09:36→21:07)
[2020-07-24] MEDS: cefTRIAXone\\ROCEPHIN 2 GM in Sodium Chloride 0.9% 100 ML IVPB SCH (21:07)
[2020-07-25] MEDS: Furosemide 20 MG TAB PO SCH (09:17)
[2020-07-25] MEDS: Rifaximin 550 MG TAB PO SCH (09:17)
[2020-07-25 15:46] VITALS: BP 103/56; TEMP 97.9
== END 2020-07-25 18:10 | DRG 441 ==
LOC: ERS 13:23 → ERHOLD 20:14 → 2NO 07-20 01:58
PROVIDERS: ADMIT Internal Medicine; ATTEND Family Medicine
DX: K72.00 Acute and subacute hepatic failure without coma (principal); G93.41 Metabolic encephalopathy; E87.1 Hypo-osmolality and hyponatremia; R18.8 Other ascites; I50.32 Chronic diastolic (congestive) heart failure; I13.0 Hypertensive heart and chronic kidney disease with heart failure and stage 1 through stage 4 chronic kidney disease, or unspecified chronic kidney disease; K74.69 Other cirrhosis of liver; Z20.822 Contact with and (suspected) exposure to COVID-19; Z66 Do not resuscitate; D69.6 Thrombocytopenia, unspecified; K76.0 Fatty (change of) liver, not elsewhere classified; E87.5 Hyperkalemia; E87.70 Fluid overload, unspecified; N18.1 Chronic kidney disease, stage 1; Z86.73 Personal history of transient ischemic attack (TIA), and cerebral infarction without residual deficits; Z90.49 Acquired absence of other specified parts of digestive tract; Z79.899 Other long term (current) drug therapy
CPT/HCPCS: 36415; 51701; 74177; 76705; 80053; 81003; 81015; 82140; 83735; 83880; 83930; 83935; 84100; 84300; 85025; 85610; 85730; 87040; 87086; 93005; 96365; 96375; J0696; J1940; J3490; P9047; Q9967; U0002; U0005

== ENCOUNTER 2020-08-31 19:52 | Inpatient (IN) | payer MEDICARE ==
[2020-08-31 21:29] LABS: #Eosinphils 0.1 thou/uL (0.0-0.7); #Lymphocytes 0.9 thou/uL (1.20-3.40); #Monocytes 0.8 thou/uL (0.11-0.59); %Basophils 0.6 % (0.0-1.0); %Eosinophils 1.7 % (0.0-10.0); %Lymphocytes 11.2 % (21.0-51.0); %Monocytes 10.5 % (0.0-10.0); %Neutrophils 76.1 % (42.0-75.0); Hemoglobin 9.8 g/dL (12.0-16.0); Mean Corpuscular HGB CONC 33.5 g/dL (32.0-36.0); Mean Corpuscular Hemoglobin 36.4 pg (27.0-31.0); Mean Platelet Volume 10.3 fL (7.4-10.4); Platelet Count 34 thou/uL (130-400); RBC Distribution Width 17.1 % (11.5-14.5); White Blood Cell (WBC) Count 7.9 thou/uL (4.8-10.8)
[2020-08-31 21:33] LABS: INR-International Normal Ratio 2.8; Prothrombin Time 29.7 sec (12.0-14.7)
[2020-08-31 21:34] LABS: PTT 50.3 sec (22.9-36.1)
[2020-08-31 21:43] LABS: ALT (SGPT) 51 U/L (8-55); AST (SGOT) 180 U/L (5-34); Albumin 2.3 g/dL (3.5-5.0); Alkaline Phosphatase 179 U/L (40-110); Anion Gap 9 mmol/L (10-20); BUN (Urea Nitrogen) 15 mg/dL (9.8-20.1); Bilirubin, Total 8.8 mg/dL (0.2-1.2); Calc. Creatinine Clearance 0 mL/min (70-130); Carbon Dioxide 26 mmol/L (22-29); Chloride 93 mmol/L (98-107); Glucose 102 mg/dL (70-105); Potassium 4.6 mmol/L (3.5-5.1); Protein, Total 5.3 g/dL (6.0-8.3); Sodium 123 mmol/L (136-145)
[2020-08-31 23:14] LABS: Bacteria/HPF None Seen HPF (None Seen); Bilirubin 2+ (Negative); Blood, Urine 2+ (Negative); Clarity Turbid (Clear); Glucose, Urine (Dipstick) Normal (Negative); Ketone, Urine Trace mg/dL (Negative); Leukocyte Negative Leu/uL (Negative); Mucous/LPF 2+ LPF (<2+); Nitrite Negative (Negative); Protein, Urine (Dipstick) 30 mg/dL (Neg-Trace); Specific Gravity, Urine 1.027 (1.002-1.036); Squamous Epithelial 0-3 HPF (0-3); Urobilinogen Normal mg/dL (Less than 2)
[2020-09-01] MEDS ORDERED: Acetaminophen 650 MG Suppository PR PRN (03:07)
[2020-09-01] MEDS ORDERED: Acetaminophen 325 MG TAB PO PRN (03:07)
[2020-09-01] MEDS ORDERED: Ondansetron PF 4 MG/2 ML Vial IVP PRN (03:07)
[2020-09-01] MEDS ORDERED: Ondansetron ODT 4 MG TAB PO PRN (03:07)
[2020-09-01 03:25] LABS: #Eosinphils 0.1 thou/uL (0.0-0.7); #Monocytes 0.8 thou/uL (0.11-0.59); %Basophils 0.3 % (0.0-1.0); %Eosinophils 1.8 % (0.0-10.0); %Monocytes 9.7 % (0.0-10.0); %Neutrophils 76.2 % (42.0-75.0); Hemoglobin 10.4 g/dL (12.0-16.0); Mean Corpuscular HGB CONC 33.7 g/dL (32.0-36.0); Mean Corpuscular Hemoglobin 36.7 pg (27.0-31.0); Mean Platelet Volume 10.9 fL (7.4-10.4); Platelet Count 30 thou/uL (130-400); Red Blood Cell (RBC) Count 2.82 mill/uL (4.20-5.40); White Blood Cell (WBC) Count 7.9 thou/uL (4.8-10.8)
[2020-09-01 03:44] LABS: Anion Gap 10 mmol/L (10-20); BUN (Urea Nitrogen) 16 mg/dL (9.8-20.1); Calc. Creatinine Clearance 0 mL/min (70-130); Calcium 8.2 mg/dL (7.8-10.44); Carbon Dioxide 25 mmol/L (22-29); Chloride 94 mmol/L (98-107); Glucose 75 mg/dL (70-105); Potassium 5.1 mmol/L (3.5-5.1); Sodium 124 mmol/L (136-145)
[2020-09-01] MEDS ORDERED: Piperacillin/Tazobactam 3.375 GM in Sodium Chloride 0.9% 100 ML IVPB SCH ×2 (04:00→08:00)
[2020-09-01] MEDS ORDERED: VANCOMYCIN 1.25 GM/250 ML BAG 1.25 GM in Premix Bag 1 BAG IVPB SCH (06:00)
[2020-09-01 07:49] LABS: Anion Gap 10 mmol/L (10-20); BUN (Urea Nitrogen) 18 mg/dL (9.8-20.1); Calc. Creatinine Clearance 0 mL/min (70-130); Calcium 8.1 mg/dL (7.8-10.44); Carbon Dioxide 26 mmol/L (22-29); Chloride 94 mmol/L (98-107); Glucose 73 mg/dL (70-105); Sodium 125 mmol/L (136-145)
[2020-09-01] MEDS ORDERED: Enoxaparin Sodium 40 MG/0.4 ML SYRINGE SC SCH (09:00)
[2020-09-01] MEDS: Rifaximin 550 MG TAB PO SCH ×2 (09:41→20:02)
[2020-09-01 11:38] LABS: Anion Gap 9 mmol/L (10-20); BUN (Urea Nitrogen) 20 mg/dL (9.8-20.1); Calc. Creatinine Clearance 0 mL/min (70-130); Calcium 7.9 mg/dL (7.8-10.44); Carbon Dioxide 26 mmol/L (22-29); Chloride 93 mmol/L (98-107); Glucose 94 mg/dL (70-105); Sodium 123 mmol/L (136-145)
[2020-09-01 12:31] LABS: Amphetamine Not Detected (NotDetected); Barbiturates Screen Not Detected (NotDetected); Benzodiazepine Screen Not Detected (NotDetected); Cocaine Metabolite Screen Not Detected (NotDetected); Methadone Not Detected (NotDetected); Methamphetamine Not Detected (NotDetected); Opiate Screen Not Detected (NotDetected); Oxycodone Screen Not Detected (NotDetected); Phencyclidine (PCP) Not Detected (NotDetected); THC/Cannabinoid Screen Not Detected (NotDetected); Tricyclic Screen Not Detected (NotDetected)
[2020-09-01] MEDS ORDERED: Phytonadione 10 MG/ML AMP SLOW IVP SCH (14:00)
[2020-09-01 16:50] LABS: Anion Gap 13 mmol/L (10-20); BUN (Urea Nitrogen) 23 mg/dL (9.8-20.1); Calc. Creatinine Clearance 137 mL/min (70-130); Carbon Dioxide 22 mmol/L (22-29); Chloride 95 mmol/L (98-107); Glucose 75 mg/dL (70-105); Potassium 5.8 mmol/L (3.5-5.1); Sodium 124 mmol/L (136-145)
[2020-09-01] MEDS: Sodium Chloride 0.9% 1,000 ML IV SCH (19:15)
[2020-09-01] MEDS ORDERED: Furosemide 20 MG/2 ML VIAL SLOW IVP SCH (20:00)
[2020-09-01 21:29] LABS: Anion Gap 14 mmol/L (10-20); BUN (Urea Nitrogen) 24 mg/dL (9.8-20.1); Calc. Creatinine Clearance 134 mL/min (70-130); Calcium 7.7 mg/dL (7.8-10.44); Carbon Dioxide 20 mmol/L (22-29); Chloride 98 mmol/L (98-107); Glucose 87 mg/dL (70-105); Potassium 6.1 mmol/L (3.5-5.1); Sodium 126 mmol/L (136-145)
[2020-09-02] MEDS ORDERED: Fludrocortisone Acetate 0.1 MG TAB PO SCH ×2 (00:15→11:00)
[2020-09-02 00:24] LABS: Anion Gap 14 mmol/L (10-20); Carbon Dioxide 21 mmol/L (22-29); Chloride 97 mmol/L (98-107); Sodium 126 mmol/L (136-145)
[2020-09-02 00:37] LABS: Actual Bicarbonate (HCO3a) 27.4 mEq/L (22-28); Base Excess (BEa) 3.6 mEq/L (-2.0 to +3.0); CO2 Tension 38.1 mmHg (35.0-45.0); Calcium, Ionized (arterial) 1.11 mmol/L (1.12-1.30); Carboxyhemoglobin (COHb) 2.6 gm% (0.0-3.0); Hemoglobin (Hb) 8.5 g/dL (12.0-16.0); O2 Tension (PaO2), arterial 64.7 mmHg (> 80.0); Potassium - ABG Lab 4.81 mmol/L (3.70-5.30); pH, Arterial 7.48 (7.35-7.45)
[2020-09-02 00:45] LABS: ALV-art Gradient 37.405 mmHg (0-20); Puncture Site RRA
[2020-09-02] MEDS ORDERED: Spironolactone 25 MG TAB PO SCH (08:00)
[2020-09-02] MEDS: Multivit, Therapeutic 1 TAB PO SCH (08:36)
[2020-09-02] MEDS: Rifaximin 550 MG TAB PO SCH ×2 (08:36→20:27)
[2020-09-02] MEDS: Sodium Chloride 0.9% 1,000 ML IV SCH ×2 (08:36→20:35)
[2020-09-02 09:36] LABS: Anion Gap 13 mmol/L (10-20); BUN (Urea Nitrogen) 25 mg/dL (9.8-20.1); Calc. Creatinine Clearance 143 mL/min (70-130); Calcium 7.7 mg/dL (7.8-10.44); Carbon Dioxide 23 mmol/L (22-29); Chloride 96 mmol/L (98-107); Glucose 119 mg/dL (70-105); Potassium 4.8 mmol/L (3.5-5.1); Sodium 127 mmol/L (136-145)
[2020-09-02 13:17] LABS: Anion Gap 13 mmol/L (10-20); BUN (Urea Nitrogen) 26 mg/dL (9.8-20.1); Calc. Creatinine Clearance 136 mL/min (70-130); Calcium 7.9 mg/dL (7.8-10.44); Carbon Dioxide 22 mmol/L (22-29); Chloride 96 mmol/L (98-107); Glucose 119 mg/dL (70-105); Potassium 5.5 mmol/L (3.5-5.1); Sodium 125 mmol/L (136-145)
[2020-09-03 05:57] LABS: #Eosinphils 0.2 thou/uL (0.0-0.7); #Lymphocytes 0.9 thou/uL (1.20-3.40); #Monocytes 0.6 thou/uL (0.11-0.59); #Neutrophils 6.6 thou/uL (1.40-6.50); %Basophils 0.1 % (0.0-1.0); %Eosinophils 2.4 % (0.0-10.0); %Lymphocytes 11.3 % (21.0-51.0); %Monocytes 6.6 % (0.0-10.0); %Neutrophils 79.6 % (42.0-75.0); Hemoglobin 7.6 g/dL (12.0-16.0); Mean Corpuscular HGB CONC 33.4 g/dL (32.0-36.0); Mean Corpuscular Hemoglobin 36.5 pg (27.0-31.0); Mean Platelet Volume 10.4 fL (7.4-10.4); Platelet Count 31 thou/uL (130-400); RBC Distribution Width 17.7 % (11.5-14.5); Red Blood Cell (RBC) Count 2.09 mill/uL (4.20-5.40); White Blood Cell (WBC) Count 8.3 thou/uL (4.8-10.8)
[2020-09-03 06:08] LABS: INR-International Normal Ratio 2.7; Prothrombin Time 28.9 sec (12.0-14.7)
[2020-09-03 06:17] LABS: Anion Gap 10 mmol/L (10-20); BUN (Urea Nitrogen) 26 mg/dL (9.8-20.1); Calc. Creatinine Clearance 139 mL/min (70-130); Carbon Dioxide 25 mmol/L (22-29); Chloride 96 mmol/L (98-107); Glucose 76 mg/dL (70-105); Potassium 4.8 mmol/L (3.5-5.1); Sodium 126 mmol/L (136-145)
[2020-09-03 06:18] LABS: Calcium 7.8 mg/dL (7.8-10.44)
[2020-09-03] MEDS: Rifaximin 550 MG TAB PO SCH ×2 (09:41→21:41)
[2020-09-03] MEDS: Multivit, Therapeutic 1 TAB PO SCH (09:41)
[2020-09-03] MEDS: Fludrocortisone Acetate 0.1 MG TAB PO SCH (09:41)
[2020-09-03] MEDS ORDERED: Furosemide 20 MG/2 ML VIAL SLOW IVP SCH (10:45)
[2020-09-03] MEDS: Sodium Chloride 0.9% 1,000 ML IV SCH ×3 (12:02→19:34)
[2020-09-03 12:14] LABS: ALT (SGPT) 49 U/L (8-55); AST (SGOT) 168 U/L (5-34); Alkaline Phosphatase 158 U/L (40-110); Anion Gap 11 mmol/L (10-20); BUN (Urea Nitrogen) 27 mg/dL (9.8-20.1); Bilirubin, Total 14.2 mg/dL (0.2-1.2); Calc. Creatinine Clearance 132 mL/min (70-130); Calcium 7.7 mg/dL (7.8-10.44); Carbon Dioxide 23 mmol/L (22-29); Chloride 95 mmol/L (98-107); Globulin 2.7 g/dL (2.4-3.5); Glucose 97 mg/dL (70-105); Potassium 4.9 mmol/L (3.5-5.1); Protein, Total 4.7 g/dL (6.0-8.3); Sodium 124 mmol/L (136-145)
[2020-09-03 12:51] LABS: Anion Gap 10 mmol/L (10-20); BUN (Urea Nitrogen) 26 mg/dL (9.8-20.1); Calc. Creatinine Clearance 134 mL/min (70-130); Calcium 7.8 mg/dL (7.8-10.44); Carbon Dioxide 25 mmol/L (22-29); Chloride 95 mmol/L (98-107); Glucose 85 mg/dL (70-105); Potassium 4.6 mmol/L (3.5-5.1); Sodium 125 mmol/L (136-145)
[2020-09-04] MEDS: Sodium Chloride 0.9% 1,000 ML IV SCH ×2 (06:00→18:32)
[2020-09-04 07:59] LABS: Anion Gap 9 mmol/L (10-20); BUN (Urea Nitrogen) 30 mg/dL (9.8-20.1); Calc. Creatinine Clearance 132 mL/min (70-130); Calcium 7.9 mg/dL (7.8-10.44); Carbon Dioxide 26 mmol/L (22-29); Chloride 96 mmol/L (98-107); Glucose 62 mg/dL (70-105); Potassium 4.8 mmol/L (3.5-5.1); Sodium 126 mmol/L (136-145)
[2020-09-04] MEDS: Fludrocortisone Acetate 0.1 MG TAB PO SCH (08:43)
[2020-09-04] MEDS: Multivit, Therapeutic 1 TAB PO SCH (08:43)
[2020-09-04] MEDS: Rifaximin 550 MG TAB PO SCH ×2 (08:43→21:54)
[2020-09-04 15:08] LABS: Hemoglobin 7.3 g/dL (12.0-16.0); Mean Corpuscular HGB CONC 34.5 g/dL (32.0-36.0); Mean Corpuscular Hemoglobin 37.5 pg (27.0-31.0); Mean Platelet Volume 12.8 fL (7.4-10.4); Platelet Count 17 thou/uL (130-400); RBC Distribution Width 18.2 % (11.5-14.5); Red Blood Cell (RBC) Count 1.95 mill/uL (4.20-5.40)
[2020-09-04 15:28] LABS: Anisocytosis SLIGHT = 6-15 cells (100X) (0-5/hpf); Band 13 % (5-11); Eosinophils 1 % (0-10); MDiff Complete? YES; Macrocytosis SLIGHT = 6-15 cells (100X) (0-5/hpf); Monocytes 3 % (0-10); Neutrophil 80 % (42-75); Nucleated RBC 3 % (0); Platelet Morphology Comment Appears Decreased; Polychromasia MODERATE = 3-4 cells (100X) (0-2/hpf); Reactive Lymphocytes 3 % (0-10); Schistocytes SLIGHT = 2-5 cells (100X) (0-1/hpf); Tear Drops SLIGHT = 2-5 cells (100X) (0-1/hpf); White Blood Cell (WBC) Count 11.7 thou/uL (4.8-10.8)
[2020-09-05] MEDS: Sodium Chloride 0.9% 1,000 ML IV SCH (02:03)
[2020-09-05 08:20] VITALS: BP 94/61; TEMP 97.1
== END 2020-09-05 15:00 | disposition expired | DRG 441 ==
LOC: ERS 19:52 → SURG B 09-01 01:49 → SURG A 09-01 07:24
PROVIDERS: ADMIT Student in an Organized Health Care Education/Training Program; ATTEND Family Medicine
DX: K72.90 Hepatic failure, unspecified without coma (principal); J18.9 Pneumonia, unspecified organism; J90 Pleural effusion, not elsewhere classified; E87.1 Hypo-osmolality and hyponatremia; R18.8 Other ascites; D68.4 Acquired coagulation factor deficiency; E87.2 Acidosis; I50.32 Chronic diastolic (congestive) heart failure; I13.0 Hypertensive heart and chronic kidney disease with heart failure and stage 1 through stage 4 chronic kidney disease, or unspecified chronic kidney disease; Z51.5 Encounter for palliative care; Z66 Do not resuscitate; K75.81 Nonalcoholic steatohepatitis (NASH); D69.59 Other secondary thrombocytopenia; K74.60 Unspecified cirrhosis of liver; D53.9 Nutritional anemia, unspecified; N18.9 Chronic kidney disease, unspecified; N93.9 Abnormal uterine and vaginal bleeding, unspecified; D73.1 Hypersplenism; I46.8 Cardiac arrest due to other underlying condition; E87.5 Hyperkalemia; Z79.899 Other long term (current) drug therapy; Z98.890 Other specified postprocedural states
CPT/HCPCS: 36415; 36416; 36600; 51701; 70450; 71045; 76856; 80048; 80053; 80306; 81003; 81015; 82140; 82274; 82805; 83930; 83935; 85025; 85610; 85730; 87040; 87149; J1940; J2543; J3370; J3430; J3490